=== PATIENT | female | born 1940 | race Caucasian/White ===

== ENCOUNTER 2022-04-19 19:02 | Inpatient (IN) | payer MEDICARE, OTHER, SELFPAY ==
[2022-04-19 19:04] VITALS: BP 156/134; PULSE 82; RESP 18; TEMP 36.5; O2SAT 97; BMI 26.5
--- NOTE | 2022-04-19 19:24 | EDS_ITS ---
HPI HPI - Fall History of Present Illness Chief Complaint: Fall Informant: patient Occured/Mechanism Occurred: Today Mechanism/Context: Yes same level fall Narrative: Patient presents with left hip pain that began after a fall that occurred today. Patient states she was attempting to move a chair when it pulled the rug up and her foot got caught on the edge of the rug. Patient tripped and fell backwards onto her left hip. Patient denies any head injury or loss of consciousness. Patient states her pain is worse with any movement of her left hip. Patient was unable to ambulate or bear weight after the fall. Patient denies any paresthesias or weakness. Patient denies any other injuries. Pain/Injury Pain Location: lower extremity (Left hip) Quality of Pain: Sharp Associated Symptoms Associated Symptoms: Positive for Inability to ambulate; Negative for Parasthesias, Weakness, Loss of function, Loss of consciousness or Amnesia [facility] Medical History (Updated 04/19/22 @ 21:[address] Katja Sumner MD) Hypertension Home Medications Prilosec 20 mg DAILY 04/19/22 [History Last Taken Unknown] lisinopril 10 mg tablet 10 mg PO DAILY 04/19/22 [History Last Taken Unknown] prednisone 10 mg tablet 10 mg PO DAILY 04/19/22 [History Last Taken Unknown] Allergy/AdvReac Type Severity Reaction Status Date / Time No Known Allergies Allergy Verified 04/19/22 20:19 Surgical History (Updated 04/19/22 @ 19:[address] Vega Castro DO) S/P ORIF (open reduction internal fixation) fracture Social History Smoking Status: Never smoker ROS ROS ED Constitutional Constitutional ED: Denies chills or fever(s) Eyes Eyes: Denies blurry vision or change in vision ENT ENT ED: Denies rhinorrhea or sore throat Cardiovascular Cardiovascular: Denies chest pain or palpitations Respiratory/Chest Respiratory/Chest: Denies cough or dyspnea Gastrointestinal Gastrointestinal: Denies nausea or vomiting Genitourinary Genitourinary ED: Denies dysuria or hematuria Musculoskeletal Musculoskeletal: Denies back pain or neck pain Integumentary Reports rash; Denies abscess Neurologic Neurologic: Denies headache(s) or weakness Allergic/Immunologic Allergic/Immunologic ED: Denies mouth swelling or urticaria EXAM Physical Exam Const Vital Signs: 04/19/22 19:04 Temperature 97.7 F L Temperature Source Temporal Pulse Rate 82 Respiratory Rate 18 Blood Pressure 156/134 H Blood Pressure Mean 141 Pulse Ox 97 Oxygen Delivery Method Room Air Positive well nourished and well developed General Appearance ED: well developed and NAD Neck full ROM and supple Extremity Extremity Narrative: There is tenderness over the left hip. The left hip is flexed and internally rotated. Range of motion was limited in all motions of the left hip secondary to pain. Pedal pulses are equal bilaterally. Sensation was intact to light touch in all digits. Capillary refills less than 2 seconds in all digits. Neuro oriented x3, CN's II-XII intact bilaterally, moves all extremities, no focal motor deficits and no sensory deficits noted Sensorium / Orientation: alert Motor Exam: strength 5/5 throughout Psych mental status grossly normal Skin Skin Narrative: There is an erythematous urticarial rash noted over the face. There are no vesicles or pustules. There are no petechia noted. There is no involvement of mucous membranes. MDM MDM MDM Narrative Medical decision making narrative: Patient was given injection of morphine and Zofran here. X-rays of the left hip were obtained. There are 3 views. On my interpretation, there is an intertrochanteric fracture of the left hip. There is minimal displacement. There is some varus angulation. Radiologist also interpreted the x-rays and agrees. Portable 1 view chest x-ray was obtained. On my interpretation, lung davies are clear. There is normal cardiac silhouette. Bony thorax is normal. There is no acute process noted. Radiologist also interpreted the x-ray and agrees. Case was discussed with Dr. Kulwinder Howard from orthopedics. He will see the patient in consultation. He recommended admitting the patient to the hospitalist service. Case was discussed with the hospitalist. She will admit the patient to her service. EKG was obtained. On my interpretation, it showed a normal sinus rhythm with a rate of 61. MN interval, QRS interval, and QTc intervals were all normal. [place]und[place] was normal. There are nonspecific ST-T wave changes. Basic labs were obtained. CBC showed a mild leukocytosis of 14.3. This is most likely due to the prednisone. Spring catheter was placed. Patient was given a repeat dose of morphine. Patient and family understood and were agreeable with the plan. All questions were answered. Lab Data Labs: Laboratory Results - last 24 hr 04/19/22 19:10 WBC 14.3 H RBC 4.31 Hgb 14.1 Hct 42.4 MCV 98.4 MCH 32.7 H MCHC 33.3 RDW Std Deviation 44.0 H RDW Coeff of Russel 12.1 Plt Count 287 MPV 10.2 Immature Gran % (Auto) 1.400 H Neut % (Auto) 88.4 H Lymph % (Auto) 7.3 L Morgan % (Auto) 2.8 Eos % (Auto) 0.0 Baso % (Auto) 0.1 Absolute Neuts (auto) 12.7 H Absolute Lymphs (auto) 1.04 Nucleated RBC % 0 Radiography Diagnostic Testing: Clinical Impression(s) from Imaging Studies Hip/Pelvis X-Ray 04/19/22 20:00 IMPRESSION: Intertrochanteric fracture of the left femoral neck. Electronically Signed: Xavi Solorio MD at 20:32 EDT , Chest X-Ray 04/19/22 20:16 IMPRESSION: No radiographic evidence of acute cardiopulmonary disease. Electronically Signed: Xavi Solorio MD at 20:32 EDT , EKG Initial EKG: Attestation: I personally reviewed and interpreted this EKG as follows: Interpretation: Sinus Rhythm (61) and Non-Specific ST Changes Prior EKG tracings: not available for review Prior: No Prior Discharge Plan Dx/Rx/DC Orders Clinical Impression: Closed left hip fracture, Fall, Hypertension Disposition Disposition: Acute Care [facility]
[2022-04-19] MEDS: Ondansetron 4 MG/2 ML Vial IV (19:38)
[2022-04-19] MEDS: Morphine 4 MG/ML Syringe IV ×3 (19:38→23:15)
--- NOTE | 2022-04-19 20:00 | RAD_ITS ---
EXAM: XR LEFT HIP WITH PELVIS WHEN PERFORMED, 2 OR 3 VIEWS CLINICAL INDICATION: Injury/Pain TECHNIQUE: Two or three views of the left hip with pelvis when performed. This report was created using [employer] report generation technology. COMPARISON: None. FINDINGS: BONES/JOINTS: There is an intertrochanteric fracture of the left femoral neck. No destructive or sclerotic lesions. Note that overlapping bowel shadows may however obscure fine detail. Sacroiliac joint is unremarkable. No widening of the pubic symphysis. The articular structures are unremarkable. SOFT TISSUES: Unremarkable. No soft tissue swelling or gas. RAD/HIP, UNI W/ Pelvis 2-3 Views IMPRESSION: Intertrochanteric fracture of the left femoral neck. Electronically Signed: Xavi Solorio MD at 20:32 EDT ,
--- NOTE | 2022-04-19 20:16 | RAD_ITS ---
EXAM: XR CHEST, 1 VIEW CLINICAL INDICATION: cough TECHNIQUE: Frontal view of the chest. This report was created using [employer] report generation technology. COMPARISON: None. FINDINGS: LUNGS AND PLEURAL SPACES: Unremarkable. No consolidation or edema. No pneumothorax. No effusion. HEART: Unremarkable. Cardiac silhouette not enlarged. MEDIASTINUM: Central airways and mediastinal contour are unremarkable. BONES/JOINTS: Unremarkable. SOFT TISSUES: Unremarkable. RAD/Chest 1 View IMPRESSION: No radiographic evidence of acute cardiopulmonary disease. Electronically Signed: Xavi Solorio MD at 20:32 EDT ,
--- NOTE | 2022-04-19 20:51 | EKG12_ITS ---
Test Reason : DYSRHYTHMIA Blood Pressure : / mmHG Vent. Rate : 061 BPM Atrial Rate : 061 BPM P-R Int : 122 ms QRS Dur : 090 ms QT Int : 428 ms P-R-T Axes : 058 025 035 degrees QTc Int : 430 ms Normal sinus rhythm Nonspecific ST abnormality Abnormal ECG Confirmed by HATTIE NORRIS, MARCELLA ([id number]), greeting card editor ANA CHAO ([id number]) on 04/20/2022 12:47:26 PM Referred By: JONATHAN Confirmed By:MARCELLA KUHN MD
--- NOTE | 2022-04-19 21:00 | HP.PCM.HOS_ITS ---
HPI - General General Date of Admission: 04/19/22 Date of Service: 04/19/22 Chief Complaint: Fall, left hip pain. HPI Narrative The patient is an 81 y/o F w/ PMHx: HTN, GERD who presents to the [facility] ED on 04/19/22 with history of mechanical fall on day of presentation unfortunately tempting to move a chair at which point her foot got caught on the edge of a rug prompting a fall backwards onto the left hip with no loss of consciousness or a ny head trauma with ongoing intractable left hip pain since, worse with any movement with inability to bear weight prompting eventual ED evaluation. Patient denied any associated paresthesias. Patient noted that when she first injured herself the pain was severe, sharp, 10 out of 10 however now following morphine administration if she does not move she reports that her pain is completely controlled. Work-up in the ED included T97.7, heart rate 82, BP 156/134, respiratory rate 18, 97% on room air, plain film of the left hip and pelvis demonstrating intertrochanteric fracture of the left femoral neck, chest x-ray with no acute cardiopulmonary findings. In the ED patient ministered Zofran and morphine therapy. [facility] Medical History (Updated 04/19/22 @ 22:[address] Katja Sumner MD) GERD (gastroesophageal reflux disease) Hypertension Home Medications Prilosec 20 mg DAILY 04/19/22 [History Last Taken Unknown] lisinopril 10 mg tablet 10 mg PO DAILY bp 04/19/22 [History Last Taken Unknown] prednisone 10 mg tablet 40 mg PO DAILY allergic reaction 04/19/22 [History Last Taken Unknown] Allergy/AdvReac Type Severity Reaction Status Date / Time No Known Allergies Allergy Verified 04/19/22 20:19 Family History (Updated 04/19/22 @ 22:[address] Katja Sumner MD) Mother Heart disease Diabetes Father Heart disease Surgical History (Updated 04/19/22 @ 22:[address] Katja Sumner MD) S/P ORIF (open reduction internal fixation) fracture Social History (Updated 04/19/22 @ 22:[address] Katja Sumner MD) household members: none housing: other details: Spouse passed 06/2021. Smoking Status: Never smoker alcohol intake: never substance use type: does not use ROS ROS Narrative Admission Review of Systems: CONSTITUTIONAL: No weight loss, fever, chills, + weakness or fatigue. HEENT: + Recent erythematous urticarial rash on the face. Eyes: No visual loss, blurred vision, double vision or yellow sclerae. Ears, Nose, Throat: No hearing loss, sneezing, congestion, runny nose or sore throat. SKIN: + Recent dermatitis. CARDIOVASCULAR: No chest pain, chest pressure or chest discomfort, palpitations, edema, orthopnea, syncopal events. RESPIRATORY: No shortness of breath, cough or sputum, wheezing, hemoptysis. GASTROINTESTINAL: + Dyspepsia. No anorexia, nausea, vomiting or diarrhea, abdominal pain, melena, BRBPR. GENITOURINARY: No dysuria, frequency, urgency or retention. NEUROLOGICAL: No headache, dizziness, syncope, paralysis, ataxia, numbness or tingling in the extremities, focal weakness, change in bowel or bladder control, seizure. MUSCULOSKELETAL: + muscle, back pain, joint pain or stiffness. HEMATOLOGIC: No anemia, bleeding or bruising. LYMPHATICS: No enlarged nodes. No history of splenectomy. PSYCHIATRIC: No history of depression or anxiety. ENDOCRINOLOGIC: No reports of sweating, cold or heat intolerance. No polyuria or polydipsia. ALLERGIES: No history of asthma, hives, eczema or rhinitis. Vital Signs Vital Signs Vital Signs: 04/19/22 19:04 Temperature 97.7 F L Temperature Source Temporal Pulse Rate 82 Respiratory Rate 18 Blood Pressure 156/134 H Blood Pressure Mean 141 Pulse Ox 97 Oxygen Delivery Method Room Air Weight Weight: 145 lb 4.554 oz Body Mass Index (BMI) 26.5 Physical Exam Narrative Physical Examination: General: Awake, alert, oriented x 3 and cooperative, laying in the ED bed, fatigued, notes pain currently controlled. Skin: Normal color, normal turgor, no icterus, no cyanosis except noted urticarial erythematous rash over the face. HEENT: AT/NC, EOMI, PERRLA, mildly dry MM, no carotid bruits or JVD noted, see skin. Lungs: Mildly diminished, greater bases, appropriate effort, no rales, ronchi or wheezing. Heart: Regular rate and rhythm; no gallop, rub audible. Abdomen: Soft, overweight, NTTP, ND, normal BS, no HSM. Extremities: No cyanosis, clubbing, or edema, status post mechanical fall, peripheral pulses intact, tenderness to left hip palpation, flexed internally rotated, limited range of motion. Neurological: Patient awake, alert, oriented as noted, cognitive function appears baseline intact; pupils equally reactive to light and accommodation, cranial nerves II-XII grossly normal, moving all 4 extremities except extremely limited left lower extremity movement as noted, strength accordingly severely globally decreased. Psychiatric: Affect appears fatigued, no acute evidence of depressive or anxiety feelings. Results Lab / Micro Data Result Diagrams: 04/19/22 19:10 04/19/22 19:10 Radiology Impression Hip/Pelvis X-Ray 04/19/22 20:00 IMPRESSION: Intertrochanteric fracture of the left femoral neck. Electronically Signed: Xavi Solorio MD at 20:32 EDT , Chest X-Ray 04/19/22 20:16 IMPRESSION: No radiographic evidence of acute cardiopulmonary disease. Electronically Signed: Xavi Solorio MD at 20:32 EDT , Assessment & Plan Assessment/Plan (1) Closed left hip fracture: PLAN: Plan The patient is an 81 y/o F w/ PMHx: HTN, GERD who presents to the [facility] ED on 04/19/22 with history of mechanical fall on day of presentation unfortunately tempting to move a chair at which point her foot got caught on the edge of a rug prompting a fall backwards onto the left hip with no loss of consciousness or any head trauma with ongoing intractable left hip pain since, worse with any movement with inability to bear weight prompting eventual ED evaluation. #1. General debility, left hip pain s/p mechanical fall w/ left hip fracture: Plain film noting intertrochanteric fracture of the left femoral neck. Orthopedic surgery consulted from ED. Will admit to MS, maintain NPO after midnight, continue gentle IVFs, UA, UCx, holley placement, monitor I/Os, frequent positioning, fall precautions, PRN pain and anti-emetic regimen. PT/OT following operative intervention. CM consulted for discharge planning. Per NSQIP given age, not markedly elevated ASA, independent status and recent steroids acutely situation only and not for chronic condition, not marked geriatric patient information, patient randy-operative risk acceptable, noted below average to average risk, will obtain EKG and if no acute concerning findings would agree with progression to OR. #2. Hypertension: Continue home regimen including lisinopril with hold parameters as needed, PRN hydralazine. #3. Recent Acute Dermatitis, erythematous urticarial facial rash: Recently rx prednisone taper, will discuss with orthopedic surgery given potential for altered wound healing and continue cautiously given suspected likely allergic reaction but if necessity to stop may consider addition of hydroxyzine for pruritus but will await orthopedic surgery input. #4. GERD: We will continue patient on Prilosec regimen. #5. DVT prophylaxis: SCDs, defer chemoprophylaxis given acute presentation #1. #6. CODE status: Patient LATRELL is her son who is present and living will is currently in place. Discussed CODE status at length including difference between FULL code, DNR-CCA and DNR-CC status. Following discussions about the differences in these status, requested Full Code status. Advanced Care Planning Face to Face Time: 16 minutes. Charges/Coding Visit Charges Inpatient E&M: 79920 Init Hosp L3 Procedures Hospitalists Procedures: 97604 Advncd Care Plan 30 Min
[2022-04-19 21:08] LABS: Absolute Lymphocyte Count 1.04 X10^3/uL (0.83-4.51); Absolute Neutrophil Count 12.7 X10^3/uL (2.0-7.7); Basophil# 0.02 X10^3/uL; Basophil% 0.1 % (0-1); Hematocrit 42.4 % (37-47); Hemoglobin 14.1 g/dL (12.0-15.0); Lymphocyte # 1.04 X10^3/ul (0.83-4.51); Lymphocyte % 7.3 % (19-41); Mean Corp Hgb Conc 33.3 g/dL (32-36); Mean Corpuscular Hgb 32.7 pg (27.0-32.0); Mean Corpuscular Volume 98.4 fL (81-99); Mean Platelet Vol. 10.2 fl (6.2-12.0); Monocyte% 2.8 % (0-10); NRBC Flagged by Analyzer 0 % (0-5); Neutrophil # 12.66 X10^3/uL (2.7-7.7); Neutrophil % 88.4 % (47-70); Platelet Count 287 K/mm3 (150-450); RBC Distribution Width CV 12.1 % (11.6-14.6); Red Blood Count 4.31 M/mm3 (4.2-5.4); White Blood Count 14.3 K/mm3 (4.4-11.0)
[2022-04-19 21:32] VITALS: BP 162/67; PULSE 70; RESP 16; TEMP 35.9; O2SAT 97
[2022-04-19 21:37] LABS: Mucous, Urine 0 SEEN /hpf (<or=2+); Red Blood Cells-Urine 0 SEEN /hpf (0-5); Squamous Epithelial Cells - UA 0 SEEN /hpf (5-10); White Blood Cells 0 SEEN /hpf (0-5)
[2022-04-19 21:39] LABS: Partial Thromboplast Time 26.4 Seconds (24.1-36.2); Prothrombin Time (Protime)PT. 12.7 SECONDS (11.7-14.9)
[2022-04-19 21:46] LABS: Color, Urine Yellow (Yellow); Glucose, Dipstick Normal (Normal); Ketone-Dipstick Negative (Negative); Leukocyte Esterase-Dipstick Negative /ul (Negative); Nitrite-Dipstick Negative (Negative); Occult Blood-Urine 25 /ul (Negative); Protein-Dipstick Negative (Negative); Specific Gravity, Urine 1.015 (1.002-1.030); Urine Bilirubin Dipstick Negative (Negative); Urine Clarity Sl. Cloudy (Clear); Urine Urobilinogen Normal (Normal)
[2022-04-19 21:46] LABS: ALB/GLOB Ratio 1.1 RATIO (0.9-2.4); AST(SGOT) 28 U/L (15-37); Alanine Aminotransfer ALT/SGPT 29 U/L (13-56); Albumin, Serum 3.8 g/dL (3.2-5.0); Alkaline Phosphatase 59 U/L (45-117); Anion Gap 5 (5-15); BUN 17 mg/dL (7-18); BUN/Creat Ratio 18.8 RATIO (10-20); Calcium,Total 9.3 mg/dL (8.5-10.1); Chloride 103 mmol/L (98-107); EST Glomerular Filtration Rate 63 mL/min (>60); Est Glom Filt Rate - Afr Amer 77 mL/min (>60); Estimated Creatinine Clearance 37.46 ml/min; Globulin 3.6 g/dL (2.2-4.2); Glucose 163 mg/dL (74-106); Potassium 3.9 mmol/L (3.5-5.1); Protein, Total 7.4 g/dL (6.4-8.2); Sodium Level 136 mmol/L (136-145)
[2022-04-19 22:00] LABS: Bacteria RARE /hpf (None Seen)
[2022-04-19 22:34] VITALS: BMI 26.6
[2022-04-19] MEDS: 0.9% Normal Saline 1,000 ML 100 ML IV (23:15)
[2022-04-19] MEDS: 0.9% Saline Lock 10 ML Syringe IV (23:21)
[2022-04-19 23:29] VITALS: BP 158/73; PULSE 67; RESP 16; TEMP 36.6; O2SAT 96
[2022-04-20] VITALS (10 sets, daily range): BP systolic 108–155; BP diastolic 52–74; PULSE 65–88; RESP 16–18; TEMP 36.6–37; O2SAT 92–97; BMI 26.9
[2022-04-20] MEDS: Senna/Docusate Sodium 1 Tablet 2 TABLET PO ×2 (00:11→21:27)
[2022-04-20] MEDS: predniSONE 10 MG Tablet PO (00:11)
[2022-04-20] MEDS: diazePAM 2 MG Tablet PO (04:34)
[2022-04-20 07:07] LABS: Absolute Lymphocyte Count 1.18 X10^3/uL (0.83-4.51); Absolute Neutrophil Count 14.7 X10^3/uL (2.0-7.7); Basophil# 0.02 X10^3/uL; Basophil% 0.1 % (0-1); Hematocrit 40.6 % (37-47); Hemoglobin 13.6 g/dL (12.0-15.0); Lymphocyte # 1.18 X10^3/ul (0.83-4.51); Lymphocyte % 6.8 % (19-41); Mean Corp Hgb Conc 33.5 g/dL (32-36); Mean Corpuscular Hgb 32.9 pg (27.0-32.0); Mean Corpuscular Volume 98.1 fL (81-99); Mean Platelet Vol. 9.5 fl (6.2-12.0); Monocyte# 1.41 X10^3/uL; Monocyte% 8.1 % (0-10); NRBC Flagged by Analyzer 0 % (0-5); Neutrophil # 14.65 X10^3/uL (2.7-7.7); Neutrophil % 84.3 % (47-70); Platelet Count 264 K/mm3 (150-450); RBC Distribution Width CV 12.2 % (11.6-14.6); Red Blood Count 4.14 M/mm3 (4.2-5.4); White Blood Count 17.4 K/mm3 (4.4-11.0)
[2022-04-20 07:58] LABS: ALB/GLOB Ratio 1.1 RATIO (0.9-2.4); AST(SGOT) 29 U/L (15-37); Alanine Aminotransfer ALT/SGPT 28 U/L (13-56); Albumin, Serum 3.4 g/dL (3.2-5.0); Alkaline Phosphatase 53 U/L (45-117); Anion Gap 7 (5-15); BUN 18 mg/dL (7-18); BUN/Creat Ratio 23.5 RATIO (10-20); Calcium,Total 8.6 mg/dL (8.5-10.1); Chloride 103 mmol/L (98-107); Creatinine, Serum 0.77 mg/dL (0.55-1.02); EST Glomerular Filtration Rate 77 mL/min (>60); Est Glom Filt Rate - Afr Amer 93 mL/min (>60); Estimated Creatinine Clearance 33.71 ml/min; Globulin 3.2 g/dL (2.2-4.2); Glucose 128 mg/dL (74-106); Potassium 4.3 mmol/L (3.5-5.1); Protein, Total 6.6 g/dL (6.4-8.2); Sodium Level 137 mmol/L (136-145)
[2022-04-20] MEDS: 0.9% Normal Saline 1,000 ML 100 ML IV ×3 (09:10→21:36)
--- NOTE | 2022-04-20 10:20 | CASEMGMT ---
Social Work Pt was informed by admitting nurse that advance directives are not on file at [facility]. Pt states she does have a living will and health care POA naming her son Darell De La Torre. Pt is aware documents are not on file and is agreeable to bring a copy in when able. BISI Reid
--- NOTE | 2022-04-20 11:35 | CASEMGMT ---
CATHI CARVALHO Assessment: Face to Face with pt for initial transition planning/care coordination assessment. CATHI CARVALHO introduced self and role at [facility], pt voices understanding and consents to assessment. Pt is A/O x4 and answers all questions appropriately at this time. Pt sitting up in bed in no distress. Pt crossword puzzle maker just left. PA, Gonzalez in to see patient as well during assessment. Care providers, pharmacy, and demographics verified/updated. Admitting Dx: Fall, L hip fx PCP: [facility]imal Specialists: val [facility] Pres[facility] Benefit: yes LW/HPOA: Pt states she has a LW/DPOA and her DPOA is her son Darell De La Torre. She is aware this is not on file at [facility] and she may bring in to be scanned into her chart. LNOK: Darell De La Torre, son Living Arrangements: Pt lives alone in a single story house with 3 steps to enter with a rail. Pt reports she was I in ADL's prior to hospitalization. Pt in June. Pt denies concerns at home. Transportation: Pt drives self and denies concerns with transportation. DME/HHC/SNF: Pt has grab bars in her bathroom. She states she has a cane at home but does not use. Pt denies hx of HHC or SNF stays. Pt states she feels she would like to go to [facility] post surgery for therapy prior to returning home. She states that some of her friends have been there. Made her aware that post surgery and therapy RN DEVEN or MARQUIS will speak with patient. Pt states no further concerns/needs. CM to follow. Advised pt to ask CM if any further question/concerns/needs arise, voices understanding. Pt Goal: [facility] Plan: TBD
--- NOTE | 2022-04-20 11:41 | CON.PCM.OR_ITS ---
HPI Consult Data Date of Consult: 04/20/22 HPI Narrative Reason for Consultation: Left hip fracture HPI Narrative: ELEONORA MOBLEY, is a 81 F who presents to [facility] via squad on 04/19/2022. She was evaluated through the emergency department and admitted to the hospital for a left intertrochanteric hip fracture. Patient reports while she was at home she was attempting to move a chair when she tripped causing her to fall backwards landing onto her left hip patient states that she had immediate pain and was unable to weight-bear after the fall. She denies any other associated injury with this fall. Denies striking her head, any loss of consciousness, neck or back pain. Patient reports no history of any injury to this left hip in the past. She denies any headaches blurred vision, chest pain, shortness of breath, calf pain, nausea vomiting. Reports her pain is well- managed if she does not move. The pain can be as severe as in 9 with a constant pain of a 4. Patient has no history of recent illnesses or infection. No history of bleeding or clotting disorders. Patient has not received her COVID vaccine but has had COVID. [facility] Medical History GERD (gastroesophageal reflux disease) Hiatal hernia High cholesterol Hypertension Non-smoker Osteoporosis Post-menopausal Home Medications Prilosec 20 mg DAILY hiatal hernia 04/19/22 [History Last Taken 04/19/22 09:00] aspirin 81 mg tablet 81 mg PO DAILY blood thinner 04/19/22 [History Last Taken 04/19/22 09:00] lisinopril 10 mg tablet 10 mg PO DAILY bp 04/19/22 [History Last Taken 04/19/22 09:00] prednisone 10 mg tablet 40 mg PO DAILY allergic reaction 04/19/22 [History Last Taken 04/19/22 09:00] ascorbic acid (vitamin C) 500 mg tablet (Vitamin C) 500 mg PO DAILY Check with primary doctor 04/20/22 [History Last Taken Unknown] calcium 600 mg capsule 600 mg PO DAILY Check with primary doctor 04/20/22 [History Last Taken Unknown] cholecalciferol (vitamin D3) 50 mcg (2,000 unit) tablet (Vitamin D3) 50 mcg PO QWEEK Check with primary doctor 04/20/22 [History Last Taken Unknown] cyanocobalamin (vitamin B-12) 1,000 mcg tablet (Vitamin B-12) 1,000 mcg PO DAILY Check with primary doctor 04/20/22 [History Last Taken Unknown] fluticasone propionate 50 mcg/actuation nasal spray,suspension (Flonase Allergy Relief) 1 spray intranasal DAILY PRN allergies 04/20/22 [History Last Taken Unknown] folic acid 400 mcg tablet 400 mcg PO DAILY Check with primary doctor 04/20/22 [History Last Taken Unknown] lactobacillus combination no.4 3 billion cell capsule (Probiotic) 3 cell PO DAILY Check with primary doctor 04/20/22 [History Last Taken Unknown] magnesium 250 mg tablet 250 mg PO DAILY Check with primary doctor 04/20/22 [History Last Taken Unknown] omega-3 fatty acids 1,000 mg PO DAILY Check with primary doctor 04/20/22 [History Last Taken Unknown] Allergy/AdvReac Type Severity Reaction Status Date / Time No Known Allergies Allergy Verified 04/19/22 20:19 Family History Mother Heart disease Diabetes Father Heart disease Surgical History S/P ORIF (open reduction internal fixation) fracture Social History household members: none housing: other details: Spouse passed 06/2021. Smoking Status: Never smoker alcohol intake: never substance use type: does not use ROS Constitutional Constitutional: Reports systems reviewed and no addt'l complaints, except as documented Eyes Eyes: Reports systems reviewed and no addt'l complaints, except as documented ENT HEENT: Reports systems reviewed and no addt'l complaints, except as documented Cardiovascular Cardiovascular: Reports systems reviewed and no addt'l complaints, except as documented Respiratory/Chest Respiratory/Chest: Reports systems reviewed and no addt'l complaints, except as documented Gastrointestinal Gastrointestinal: Reports systems reviewed and no addt'l complaints, except as documented Musculoskeletal Musculoskeletal: Reports systems reviewed and no addt'l complaints, except as documented Integumentary Integumentary: Reports systems reviewed and no addt'l complaints, except as documented Neurologic Neurologic: Reports systems reviewed and no addt'l complaints, except as documented Endocrine Endocrinology: Reports systems reviewed and no addt'l complaints, except as documented Hematologic/Lymphatic Hematologic/Lymphatic: Reports systems reviewed and no addt'l complaints, except as documented Allergic/Immunologic Allergic/Immunologic: Reports systems reviewed and no addt'l complaints, except as documented Vital Signs Vital Signs Vital Signs: 04/19/22 19:04 04/19/22 21:32 04/19/22 23:29 Temperature 97.7 F L 96.6 F L 98 F Temperature Source Temporal Temporal Temporal Pulse Rate 82 70 67 Respiratory Rate 18 16 16 Respiratory Effort Respiratory Depth Respiratory Pattern Blood Pressure 156/134 H 162/67 H 158/73 H Blood Pressure Mean 141 98 101 Blood Pressure Source Monitor Blood Pressure Position Semi-Fowlers Blood Pressure Location Right Arm Pulse Ox 97 97 96 Oxygen Delivery Method Room Air Room Air Room Air 04/19/22 23:30 04/20/22 04:40 04/20/22 08:33 Temperature 97.8 F 98.2 F Temperature Source Temporal Oral Pulse Rate 80 88 Respiratory Rate 16 16 Respiratory Effort Normal Non-Labored Respiratory Depth Normal Respiratory Pattern Normal Blood Pressure 150/70 H 150/64 H Blood Pressure Mean 96 92 Blood Pressure Source Monitor Monitor Blood Pressure Position Semi-Fowlers Semi-Fowlers Blood Pressure Location Left Arm Left Arm Pulse Ox 97 94 Oxygen Delivery Method Room Air Room Air Room Air 04/20/22 07:30 Temperature Temperature Source Pulse Rate Respiratory Rate Respiratory Effort Respiratory Depth Respiratory Pattern Blood Pressure Blood Pressure Mean Blood Pressure Source Blood Pressure Position Blood Pressure Location Pulse Ox Oxygen Delivery Method Room Air Weight Weight: 66.3 kg Body Mass Index (BMI) 26.6 Physical Exam Narrative Upon entering the room I found patient sitting up in bed. Patient was alert oriented speaking with the nurse who was in the room with her. Patient was in no respiratory distress, speaking in full sentences. Cranial nerves II through XII gross intact. There was no signs of trauma to head face neck. Patient had excellent range of motion of the upper extremities with good muscle tone and strength. Patient is right-hand dominant. Equal nursing scheduler strength. No signs of trauma to the anterior chest wall or abdomen. Patient could not tolerate sitting forward due to the severe left hip pain. There was good range of motion of the right hip knee and ankle without pain. I did not attempt any active range of motion of the left knee. She does have good plantar flexion dorsiflexion of left foot. There was no calf tenderness. There is no atrophic skin changes varicosities or edema of the lower extremities. Patient is neurovascular otherwise intact. Imaging studies reviewed shows patient does have a intertrochanteric fracture of the left hip. Const alert and oriented x3 HEENT normocephalic Eyes PERRL Neck supple Resp normal respiratory effort Effort and Inspection: able to speak in complete sentences Extremity normal capillary refill Neuro CN's II-XII intact bilaterally Motor Exam: strength 5/5 throughout Psych mental status grossly normal and affect normal Lab / Micro Data Result Diagrams: 04/20/22 06:05 04/20/22 06:05 Labs: Laboratory Results - last 24 hr 04/19/22 19:10: WBC 14.3 H, RBC 4.31, Hgb 14.1, Hct 42.4, MCV 98.4, MCH 32.7 H, MCHC 33.3, RDW Std Deviation 44.0 H, RDW Coeff of Russel 12.1, Plt Count 287, MPV 10.2, Immature Gran % (Auto) 1.400 H, Neut % (Auto) 88.4 H, Lymph % (Auto) 7.3 L , [place] % (Auto) 2.8, Eos % (Auto) 0.0, Baso % (Auto) 0.1, Absolute Neuts (auto) 12.7 H, Absolute Lymphs (auto) 1.04, Nucleated RBC % 0 04/19/22 19:10: PT 12.7, INR 1.0, APTT 26.4 04/19/22 19:10: Sodium 136, Potassium 3.9, Chloride 103, Carbon Dioxide 28.0, Anion Gap 5, BUN 17, Creatinine 0.90, Estim Creat Clear Calc 37.46, Est GFR (MDRD) Af Amer 77, Est GFR (MDRD) Non-Af 63, BUN/Creatinine Ratio 18.8, Glucose 163 H, Calcium 9.3, Total Bilirubin 0.70, AST 28, ALT 29, Alkaline Phosphatase 59, Total Protein 7.4, Albumin 3.8, Globulin 3.6, Albumin/Globulin Ratio 1.1 04/19/22 19:10: Blood Type A POSITIVE, Antibody Screen NEGATIVE 04/19/22 21:20: Urine Color Yellow, Urine Clarity Sl. Cloudy, Urine pH 6.0, Ur Specific [place] 1.015, Urine Protein Negative, Urine Glucose (UA) Normal, Urine Ketones Negative, Urine Occult Blood 25 H, Urine Nitrite Negative, Urine Bilirubin Negative, Urine Urobilinogen Normal, Ur Leukocyte Esterase Negative, Urine RBC 0 SEEN, Urine WBC 0 SEEN, Ur Squamous Epith Cells 0 SEEN, Urine Bacteria RARE, Urine Mucus 0 SEEN 04/20/22 06:05: WBC 17.4 H, RBC 4.14 L, Hgb 13.6, Hct 40.6, MCV 98.1, MCH 32.9 H , MCHC 33.5, RDW Std Deviation 44.0 H, RDW Coeff of Russel 12.2, Plt Count 264, MPV 9.5, Immature Gran % (Auto) 0.700, Neut % (Auto) 84.3 H, Lymph % (Auto) 6.8 L, [place] % (Auto) 8.1, Eos % (Auto) 0.0, Baso % (Auto) 0.1, Absolute Neuts (auto) 14.7 H, Absolute Lymphs (auto) 1.18, Nucleated RBC % 0 04/20/22 06:05: Sodium 137, Potassium 4.3, Chloride 103, Carbon Dioxide 27.0, Anion Gap 7, BUN 18, Creatinine 0.77, Estim Creat Clear Calc 33.71, Est GFR (MDRD) Af Amer 93, Est GFR (MDRD) Non-Af 77, BUN/Creatinine Ratio 23.5 H, Glucose 128 H, Calcium 8.6, Total Bilirubin 0.90, AST 29, ALT 28, Alkaline Phosphatase 53, Total Protein 6.6, Albumin 3.4, Globulin 3.2, Albumin/Globulin Ratio 1.1 Radiology Impression Hip/Pelvis X-Ray 04/19/22 20:00 IMPRESSION: Intertrochanteric fracture of the left femoral neck. Electronically Signed: Xavi Solorio MD at 20:32 EDT , Chest X-Ray 04/19/22 20:16 IMPRESSION: No radiographic evidence of acute cardiopulmonary disease. Electronically Signed: Xavi Solorio MD at 20:32 EDT , Assessment & Plan Assessment/Plan (1) Closed left hip fracture: PLAN: Plan 1. Continue all pain medications as prescribed 2. Patient to remain n.p.o. 3. Ice to left hip 4. Continue SCDs bilaterally 5. Dr. Howard will be performing an ORIF of a left hip fracture today
--- NOTE | 2022-04-20 15:41 | PCM.PN.HOSP ---
Subjective Subjective Follow-up for fall, left hip pain complicated with fracture Objective Data Objective Data Vital Signs: Vital Signs Temp Pulse Resp BP Pulse Ox O2 Del Method 98.2 F 88 16 155/72 H 94 Room Air 04/20/22 15:04/20/22 15:04/20/22 15:04/20/22 15:04/20/22 15:04/20/22 15:26 Oxygen Delivery Method Room Air Weight: 146 lb 2.664 oz Body Mass Index (BMI) 26.9 Intake & Output: Intake and Output for Last 24 Hours 04/18/22 04/19/22 04/20/22 23:59 23:59 23:59 Intake Total 991.67 / 991.67 Output Total 650 / 650 Balance 341.67 / 341.67 Lab / Micro Data Result Diagrams: 04/20/22 06:05 04/20/22 06:05 Labs: Laboratory Results - last 24 hr 04/19/22 19:10: WBC 14.3 H, RBC 4.31, Hgb 14.1, Hct 42.4, MCV 98.4, MCH 32.7 H, MCHC 33.3, RDW Std Deviation 44.0 H, RDW Coeff of Russel 12.1, Plt Count 287, MPV 10.2, Immature Gran % (Auto) 1.400 H, Neut % (Auto) 88.4 H, Lymph % (Auto) 7.3 L, [place] % (Auto) 2.8, Eos % (Auto) 0.0, Baso % (Auto) 0.1, Absolute Neuts (auto) 12.7 H, Absolute Lymphs (auto) 1.04, Nucleated RBC % 0 04/19/22 19:10: PT 12.7, INR 1.0, APTT 26.4 04/19/22 19:10: Sodium 136, Potassium 3.9, Chloride 103, Carbon Dioxide 28.0, Anion Gap 5, BUN 17, Creatinine 0.90, Estim Creat Clear Calc 37.46, Est GFR (MDRD) Af Amer 77, Est GFR (MDRD) Non-Af 63, BUN/Creatinine Ratio 18.8, Glucose 163 H, Calcium 9.3, Total Bilirubin 0.70, AST 28, ALT 29, Alkaline Phosphatase 59, Total Protein 7.4, Albumin 3.8, Globulin 3.6, Albumin/Globulin Ratio 1.1 04/19/22 19:10: Blood Type A POSITIVE, Antibody Screen NEGATIVE 04/19/22 21:20: Urine Color Yellow, Urine Clarity Sl. Cloudy, Urine pH 6.0, Ur Specific [place] 1.015, Urine Protein Negative, Urine Glucose (UA) Normal, Urine Ketones Negative, Urine Occult Blood 25 H, Urine Nitrite Negative, Urine Bilirubin Negative, Urine Urobilinogen Normal, Ur Leukocyte Esterase Negative, Urine RBC 0 SEEN, Urine WBC 0 SEEN, Ur Squamous Epith Cells 0 SEEN, Urine Bacteria RARE, Urine Mucus 0 SEEN 04/20/22 06:05: WBC 17.4 H, RBC 4.14 L, Hgb 13.6, Hct 40.6, MCV 98.1, MCH 32.9 H, MCHC 33.5, RDW Std Deviation 44.0 H, RDW Coeff of Russel 12.2, Plt Count 264, MPV 9.5, Immature Gran % (Auto) 0.700, Neut % (Auto) 84.3 H, Lymph % (Auto) 6.8 L, [place] % (Auto) 8.1, Eos % (Auto) 0.0, Baso % (Auto) 0.1, Absolute Neuts (auto) 14.7 H, Absolute Lymphs (auto) 1.18, Nucleated RBC % 0 04/20/22 06:05: Sodium 137, Potassium 4.3, Chloride 103, Carbon Dioxide 27.0, Anion Gap 7, BUN 18, Creatinine 0.77, Estim Creat Clear Calc 33.71, Est GFR (MDRD) Af Amer 93, Est GFR (MDRD) Non-Af 77, BUN/Creatinine Ratio 23.5 H, Glucose 128 H, Calcium 8.6, Total Bilirubin 0.90, AST 29, ALT 28, Alkaline Phosphatase 53, Total Protein 6.6, Albumin 3.4, Globulin 3.2, Albumin/Globulin Ratio 1.1 Radiography Diagnostic Testing: Radiology Impression Hip/Pelvis X-Ray 04/19/22 20:00 IMPRESSION: Intertrochanteric fracture of the left femoral neck. Electronically Signed: Xavi Solorio MD at 20:32 EDT , Chest X-Ray 04/19/22 20:16 IMPRESSION: No radiographic evidence of acute cardiopulmonary disease. Electronically Signed: Xavi Solorio MD at 20:32 EDT , Assessment & Plan Assessment/Plan (1) Closed left hip fracture: PLAN: Plan 81-year-old female with multiple comorbidities admitted with mechanical fall resulting to severe left hip pain complicated with left hip fracture #1. Intertrochanteric fracture of the left hip most likely due to osteoporosis/pathological: Plain film noting intertrochanteric fracture of the left femoral neck.? Patient has good preop exercise capacity, more than 4 METS. Needs to climb stairs and walk and do lawn work. Orthopedic surgery consulted. PT OT, pain management. Plan for surgery today about 1600 #2.? Hypertension: Continue home regimen including lisinopril with hold parameters as needed, PRN hydralazine. #3.? Recent Acute Dermatitis, erythematous urticarial facial rash: Patient has rough and dry skin over face, neck area. Discontinue prednisone. Does not need taper as well as recently started. Thick petroleum jelly over the rash area and Calmoseptine #4.? GERD: continue patient on Prilosec regimen. #5.? DVT prophylaxis: SCDs, #6.? CODE status: Patient LATRELL is her son who is present and living will is currently in place. Discussed CODE status at length including difference between FULL code, DNR-CCA and DNR-CC status. Following discussions about the differences in these status, requested Full Code status. Clinical Impression(s) from Imaging Studies Hip/Pelvis X-Ray 04/19/22 20:00 IMPRESSION: Intertrochanteric fracture of the left femoral neck. Electronically Signed: Xavi Solorio MD at 20:32 EDT , Chest X-Ray 04/19/22 20:16 IMPRESSION: No radiographic evidence of acute cardiopulmonary disease. Electronically Signed: Xavi Solorio MD at 20:32 EDT , Charges/Coding Visit Charges Inpatient E&M: 74490 Subs Hosp L2
[2022-04-20] MEDS: Pantoprazole Sodium 20 MG Tablet PO (16:54)
[2022-04-20] MEDS: Lisinopril 10 MG Tablet PO (16:55)
[2022-04-20] MEDS: Cefazolin 2 GM in 0.9% Normal Saline 100 ML IV (18:42)
--- NOTE | 2022-04-20 18:45 | RAD_ITS ---
EXAM: XR LEFT HIP WITH PELVIS WHEN PERFORMED, 1 VIEW CLINICAL INDICATION: ORIF, SHORT GAMMA NAIL TECHNIQUE: Frontal view of the left hip with pelvis when performed. This report was created using [employer] report generation technology. COMPARISON: None. FINDINGS: See Impression. RAD/Hip 1 view with Pelvis IMPRESSION: Multiple intraoperative images submitted of the left proximal femur. See surgical report for full details. Electronically Signed: Mic Allison MD at 21:37 EDT ,
--- NOTE | 2022-04-20 19:30 | PCM.OP.BLANK ---
Problems Associated Problem List Diagnoses (1) Closed left hip fracture: Operative Report Date of Procedure: 04/20/22 Preoperative diagnosis: Left hip displaced intertrochanteric fracture Postoperative diagnosis: Same Title of operation: Left hip open reduction internal fixation, intramedullary nail fixation, locked Surgeon: Dr. Kulwinder Howard Studio Data Analyst: Britni Thomason PA-C Anesthesia: General Medications: Ancef 2gm Indications for surgery: Patient is an 81-year-old female sustained a hip fracture yesterday. Patient and their family explained diagnosis and treatment options. Patient evaluated by the medical services. Patient did wish to have surgery. Appropriate informed consent obtained and signed. Findings: Patient had a displaced unstable intertrochanteric hip fracture. They underwent standard reduction, internal fixation using a [place] short gamma nail. X-rays taken throughout. assistant professor in family studies, physician bricklayer's assistant, was utilized throughout the entire procedure. They were vital to the procedure from beginning to end. They help with patient transfer, patient padding and positioning, fracture reduction, maintenance of fracture reduction, internal fixation of implants, wound closure, bandage application, patient transfer. Without surgical technology instructor, surgical time would have been significantly increased and surgical outcome could have been less optimal. Procedure: Patient was taken to the operating room. Placed under a general anesthetic and transferred to the operating table with the help of the bricklayer's assistant. With the help of the bricklayer's assistant patient was prepped and padded for surgery. Operative side foot was well-padded and placed in the traction boot. Uninjured lower extremity was abducted and flexed out of harms way. YOEL hose and SCDs utilized. Fluoroscopy was brought in. With the help of the bricklayer's assistant and manipulation of the limb, reduction was nicely obtained as verified under AP lateral and oblique fluoroscopic images. . Operative hip/thigh was prepped padded draped in usual orthopedic sterile fashion for the procedure. Longitudinal incision was made just proximal to the greater trochanter. Taken through skin and subcutaneous tissue. Sharp awl was placed on the tip of the greater trochanter. Position verified under AP and lateral fluoroscopic images. This was then taken down inside the bone. Slightly bent ball-tipped guide salma was then placed from the tip of the greater trochanter into the intra-medullary canal of the femur. Its position verified radiographically. Reamer was then done over the tip of this with the help of the bricklayer's assistant holding the soft tissue protector appropriately. Once reaming was done we placed the short 125? angle device over the guidepin. This was easily introduced. Guide salma removed. Outrigger device was utilized to position a guidepin from the lateral cortex of the femur across the fracture site and into the femoral head in a good position centrally, as noted on AP lateral and oblique fluoroscopic images. This was measured. Appropriate reaming done. 90 mm length lag screw was placed from the lateral cortex of the femur into the femoral head. A small amount of the screw was noted to be protruding laterally as planned. No cartilage penetration of the femoral head noted on any x-ray. Fracture was then compressed with the outrigger device. Proximal cap screw was placed by the bricklayer's assistant seated down completely, confirmed, and then loosened one fourth turn. We then used the outrigger device to place distal cross locking screw under standard technique. This was confirmed to be of adequate length in good position on AP and lateral images. Outrigger device removed. Final set of AP and lateral proximal x-rays taken and saved. Incisions thoroughly irrigated. Closing by the bricklayer's assistant with deep 0 Vicryl, mid layer 0 Vicryl, inverted 2-0 Vicryl, skin gail. Puncture wounds closed with inverted 2-0 Vicryl and gail. Xeroform 4 x 4's ABD tape applied. Patient was awoken from their anesthetic, transferred back to their own bed with the help of the bricklayer's assistant and into recovery room in satisfactory condition. Patient will continue to be admitted to the hospital under the hospitalist service. This note was generated with [employer] dictation software. It may contain incorrect words, spelling, and punctuation that were not noted in checking the note before signing.
[2022-04-20] MEDS: oxyCODONE 5 MG Tablet PO (21:27)
[2022-04-20] MEDS: Acetaminophen 325 MG Tablet 650 MG PO (21:27)
[2022-04-20] MEDS: Cefazolin 1 GM/50 ML BAG IV (21:35)
[2022-04-21 01:18] VITALS: BP 103/55; PULSE 83; RESP 16; TEMP 36.8; O2SAT 95
[2022-04-21] MEDS: oxyCODONE 5 MG Tablet PO ×3 (02:03→14:47)
[2022-04-21] MEDS: Acetaminophen 325 MG Tablet 650 MG PO (02:03)
[2022-04-21 05:13] VITALS: BP 108/70; PULSE 89; RESP 16; TEMP 37.2; O2SAT 95
[2022-04-21] MEDS: Cefazolin 1 GM/50 ML BAG IV (05:15)
[2022-04-21] MEDS: diazePAM 2 MG Tablet PO (06:06)
--- NOTE | 2022-04-21 08:26 | WOUNDNOTE ---
wound photo: right buttock
[2022-04-21] MEDS: Pantoprazole Sodium 20 MG Tablet PO (08:49)
[2022-04-21] MEDS: Lisinopril 10 MG Tablet PO (08:49)
[2022-04-21] MEDS: Aspirin 81 MG TAB.CHEW PO (08:49)
[2022-04-21] MEDS: 0.9% Normal Saline 1,000 ML 100 ML IV (09:29)
[2022-04-21 09:40] VITALS: O2SAT 98
[2022-04-21 09:42] VITALS: BP 110/76; PULSE 82; RESP 14; TEMP 36.7; O2SAT 96
--- NOTE | 2022-04-21 09:51 | CASEMGMT ---
Per Winsome from TCU/Rehab admissions patient can be accepted in Rehab. No covid test needed. Plan: Rehab [facility]
--- NOTE | 2022-04-21 12:05 | TREXTCAR_ITS ---
Diet Diet Order/Speech Therapy: 04/21/22 05:45 Diet: Regular - General Is pt able to select menu?: Yes Routine Orders/Code Status Suppository Type: Dulcolax 10mg Suppository Frequency: Daily PRN Code Status: Full Code Wound(s) RT ankle: Wound Type: Abrasion LEFT HIP: Wound Type: Surgical Incision Rt buttocks: Wound Type: Skin Tear Dressing Change: Mepilex Therapies Weight Bearing: Weight bearing as tolerated Extremity Affected:: Left Lower Physical Therapy: Eval and Treat Occupational Therapy: Eval and Treat Speech Therapy: Eval and Treat Problem/Diagnosis (1) Closed left hip fracture: Status: Acute Code(s): S72.002A - Fracture of unspecified part of neck of left femur, initial encounter for closed fracture Allergies/Procedures Done in Hospital Allergies No Known Allergies Allergy (Verified 04/19/22 20:19) Type of Care/Length of Stay Estimated LOS: Convalescent Care Less Than 30 days Type of Care Needed: Skilled Rehab Potential: Good Prognosis: Good Additional Orders/Day of Discharge Day of Discharge: 04/21/22 Discharge Plan Admission Admit Date/Time: 04/19/22 21:02 Primary Reason for Your Visit: Closed left hip fracture Attending Provider: Tyler Thomas Primary Care Provider: Gregg Celis Consulting Providers: Katja Sumner ; Kulwinder Howard Discharge Orders/Prescriptions Prescriptions: New oxycodone 5 mg Tablet 2.5 mg PO Q4H PRN PRN (Reason: Pain Score 4-10) 3 Days Qty: 7 0RF sennosides-docusate sodium [Stool Softener-Stimulant Laxat] 8.6-50 mg Tablet 2 tab PO BID Qty: 0 0RF Continued lisinopril 10 mg tablet 10 mg PO DAILY Label Comments: TAKE 1 TABLET BY MOUTH ONCE DAILY Prilosec 20 mg DAILY aspirin 81 mg Tablet 81 mg PO DAILY calcium 600 mg Capsule 600 mg PO DAILY cyanocobalamin (vitamin B-12) [Vitamin B-12] 1,000 mcg Tablet 1,000 mcg PO DAILY folic acid 400 mcg Tablet 400 mcg PO DAILY ascorbic acid (vitamin C) [Vitamin C] 500 mg Tablet 500 mg PO DAILY magnesium 250 mg Tablet 250 mg PO DAILY fluticasone propionate [Flonase Allergy Relief] 50 mcg/actuation [place],Suspension 1 spray INTRANASAL DAILY PRN (Reason: allergies) omega-3 fatty acids Capsule 1,000 mg PO DAILY cholecalciferol (vitamin D3) [Vitamin D3] 50 mcg (2,000 unit) Tablet 50 mcg PO QWEEK Probiotic 3 billion cell Capsule 3 cell PO DAILY Discontinued prednisone 10 mg tablet 40 mg PO DAILY Label Comments: TAKE 4 TABLETS BY MOUTH ONCE DAILY FOR 3 DAYS WITH FOOD, THEN 2 TABLETS ONCE DAILY FOR 3 DAYS, THEN 1 TABLET ONCE DAILY FOR 1 DAY Referrals / Follow Up: Gregg Celis MD [Primary Care Provider] - Within 2 Weeks Kulwinder Howard MD [Med Staff - Active Staff] - Within 2 Weeks Disposition Disposition (needs filled in before D/C Order can be placed): Shelter Facility
[2022-04-21 12:11] VITALS: BP 110/72; PULSE 80; RESP 16; TEMP 36.9; O2SAT 98
--- NOTE | 2022-04-21 12:13 | DS.PCM_ITS ---
Providers Date of Admission: 04/19/22 Date of Discharge: 04/21/22 Primary Care Physician: Gregg Celis MD Consultations 04/19/22 22:36 Consult: Orthopedics Routine Consulting Provider: Kulwinder oHward Reason for Consult: L hip fracture EMERGENT Consult: No MD Notified: Yes Date Notified: 04/19/22 Time Notified: 21:05 Method of Notification: ED Physician Initiated 04/21/22 06:41 Consult: Onc/Wound/sorter/assay tech Routine Comment: Reason for Consult:: skin tear to Rt buttocks Reason For Visit: FALL, L HIP FRACTURE Diagnosis Discharge Diagnosis (1) Closed left hip fracture: Status: Acute Code(s): S72.002A - Fracture of unspecified part of neck of left femur, initial encounter for closed fracture Medications at Discharge Home Medications Prilosec 20 mg DAILY hiatal hernia 04/19/22 aspirin 81 mg tablet 81 mg PO DAILY blood thinner 04/19/22 lisinopril 10 mg tablet 10 mg PO DAILY bp 04/19/22 ascorbic acid (vitamin C) 500 mg tablet (Vitamin C) 500 mg PO DAILY Check with primary doctor 04/20/22 calcium 600 mg capsule 600 mg PO DAILY Check with primary doctor 04/20/22 cholecalciferol (vitamin D3) 50 mcg (2,000 unit) tablet (Vitamin D3) 50 mcg PO QWEEK Check with primary doctor 04/20/22 cyanocobalamin (vitamin B-12) 1,000 mcg tablet (Vitamin B-12) 1,000 mcg PO DAILY Check with primary doctor 04/20/22 fluticasone propionate 50 mcg/actuation nasal spray,suspension (Flonase Allergy Relief) 1 spray intranasal DAILY PRN allergies 04/20/22 folic acid 400 mcg tablet 400 mcg PO DAILY Check with primary doctor 04/20/22 lactobacillus combination no.4 3 billion cell capsule (Probiotic) 3 cell PO DAILY Check with primary doctor 04/20/22 magnesium 250 mg tablet 250 mg PO DAILY Check with primary doctor 04/20/22 omega-3 fatty acids 1,000 mg PO DAILY Check with primary doctor 04/20/22 oxycodone 5 mg tablet 2.5 mg PO Q4H PRN PRN Pain Score 4-10 3 days #7 tabs 04/21/22 sennosides 8.6 mg-docusate sodium 50 mg tablet (Stool Softener-Stimulant Laxative) 2 tab PO BID #0 tabs 04/21/22 Hospital Course Summary of Care Provided Hospital Course: 81-year-old female with multiple comorbidities admitted with mechanical fall resulting to severe left hip pain complicated with left hip fracture #1.? Intertrochanteric fracture of the left hip most likely due to osteoporosis/pathological: Plain film noting intertrochanteric fracture of the left femoral neck.? Patient has good preop exercise capacity, more than 4 METS.? Needs to climb stairs and walk and do lawn work.? Orthopedic surgery consulted.? PT OT, pain management. The patient had left hip ORIF with intramedullary nail fixation, locked on 04/20/2022. Postop, her hemoglobin was on baseline. No severe anemia, hematoma or bruise at operative site. Patient had PT and OT and being transferred to TCU for further rehab. #2.? Hypertension: Continue home regimen including lisinopril with hold parameters as needed. #3.? Recent Acute Dermatitis, erythematous urticarial facial rash: Patient has rough and dry skin over face, neck area.? Discontinue prednisone.? Does not need taper as well as recently started.? Thick petroleum jelly over the rash area and Calmoseptine #4.? GERD:? continue patient on Prilosec regimen. #5.? DVT prophylaxis: SCDs, #6.? CODE status: Patient LATRELL is her son who is present and living will is currently in place. Discussed CODE status at length including difference between FULL code, DNR-CCA and DNR-CC status. Following discussions about the differences in these status, requested Full Code status. Discharge medication reconciliation done. Discharge follow-up instructions completed. Discharge process discussed with the patient and all questions were answered to patient's satisfaction. Total time spent, exact 35 minutes on discharge meds reconciliation, examination, coordination of care with nurses and ancillary staff, review of imaging and blood test and discussion with the patient on follow-up instructions. Physical Exam Narrative Seen and examined. Patient does not have pain over left hip until she moves or stand up. Got physical therapy in the morning. General: Alert, Oriented x3, Cooperative HEENT: Atraumatic, PERRLA, EOMI, Normocephalic Oral: No Gingival or Mucosal Lesions/ Ulcerations Neck: Supple, No JVD, Negative Carotid Bruits Lungs: Air entry diminished in bilateral lung bases. No crepitation/rhonchi Cardiovascular: Regular rate, Regular Rhythm, Normal S1, Normal S2, No murmurs Abdomen: Bowel Sounds Present, Soft, Non Tender, Non-Distended : No renal angle tenderness. No suprapubic tenderness. Extremities: No edema, Capillary Refill Less than 3 Seconds Skin: No rashes, No breakdown Musculoskeletal: Surgical dressing dry over left hip. Small dot of the stain on dressing. No palpable external hematoma or bruise. No Tenderness to Palpation of Joints or Extremities Neurological: Cranial nerves II-XII grossly intact, DTR 2+/4 and Symmetrical, Neuro grossly intact Psych/Mental Status: Normal Affect, Appropriate. Weight / BMI Weight Weight: 146 lb 12.8 oz Body Mass Index (BMI) 26.9 ABG / Lab / Microbiology Data Result Diagrams: 04/20/22 06:05 04/20/22 06:05 Radiography Diagnostic Testing: Radiology Impression Hip/Pelvis X-Ray 04/20/22 18:45 IMPRESSION: Multiple intraoperative images submitted of the left proximal femur. See surgical report for full details. Electronically Signed: Mic Allison MD at 21:37 EDT , Meaningful Use Info Meaningful Use Diagnoses (Choose all that apply): None applicable Discharge Plan Admission Admit Date/Time: 04/19/22 21:02 Primary Reason for Your Visit: Closed left hip fracture Attending Provider: Tyler Thomas Primary Care Provider: Gregg Celis Consulting Providers: Katja Sunmer ; Kulwinder Howard Discharge Orders/Prescriptions Prescriptions: New oxycodone 5 mg Tablet 2.5 mg PO Q4H PRN PRN (Reason: Pain Score 4-10) 3 Days Qty: 7 0RF sennosides-docusate sodium [Stool Softener-Stimulant Laxat] 8.6-50 mg Tablet 2 tab PO BID Qty: 0 0RF Continued lisinopril 10 mg tablet 10 mg PO DAILY Label Comments: TAKE 1 TABLET BY MOUTH ONCE DAILY Prilosec 20 mg DAILY aspirin 81 mg Tablet 81 mg PO DAILY calcium 600 mg Capsule 600 mg PO DAILY cyanocobalamin (vitamin B-12) [Vitamin B-12] 1,000 mcg Tablet 1,000 mcg PO DAILY folic acid 400 mcg Tablet 400 mcg PO DAILY ascorbic acid (vitamin C) [Vitamin C] 500 mg Tablet 500 mg PO DAILY magnesium 250 mg Tablet 250 mg PO DAILY fluticasone propionate [Flonase Allergy Relief] 50 mcg/actuation [place],Suspension 1 spray INTRANASAL DAILY PRN (Reason: allergies) omega-3 fatty acids Capsule 1,000 mg PO DAILY cholecalciferol (vitamin D3) [Vitamin D3] 50 mcg (2,000 unit) Tablet 50 mcg PO QWEEK Probiotic 3 billion cell Capsule 3 cell PO DAILY Discontinued prednisone 10 mg tablet 40 mg PO DAILY Label Comments: TAKE 4 TABLETS BY MOUTH ONCE DAILY FOR 3 DAYS WITH FOOD, THEN 2 TABLETS ONCE DAILY FOR 3 DAYS, THEN 1 TABLET ONCE DAILY FOR 1 DAY Referrals / Follow Up: Kulwinder Howard MD [Med Staff - Active Staff] - Within 2 Weeks Gregg Celis MD [Primary Care Provider] - Within 2 Weeks Disposition Disposition (needs filled in before D/C Order can be placed): Residential Facility Charges/Coding Visit Charges Inpatient E&M: 97819 Disch Hosp
--- NOTE | 2022-04-21 13:23 | PN.ORTHO_ITS ---
Subjective Subjective Patient is s/p left sided short intertrochanteric nail with Dr. Howard on 04/20/2022. Patient resting comfortably in bed. Rates pain 3/ 10 at rest. With movement 7/10. States taking Tylenol and oxycodone as needed and ice help to relieve pain. Patient has been up with therapy. Walking with the assit of a walker. Afebrile, no chest pain, shortness of breath, negative calf pain/ erythema, and no other signs of DVT. Objective Data Objective Data Vital Signs: Vital Signs Temp Pulse Resp BP Pulse Ox O2 Del Method 98.1 F 82 14 110/76 96 Room Air 04/21/22 09:42 04/21/22 09:42 04/21/22 09:42 04/21/22 09:42 04/21/22 09:42 04/21/22 09:42 Oxygen Delivery Method Room Air Weight: 66.587 kg Body Mass Index (BMI) 26.9 Intake & Output: Intake and Output for Last 24 Hours 04/19/22 04/20/22 04/21/22 23:59 23:59 23:59 Intake Total 1191.67 / 1191.67 1046.67 / 1046.67 Output Total 1150 / 1350 450 / 450 Balance 41.67 / -158.33 596.67 / 596.67 Lab / Micro Data Result Diagrams: 04/20/22 06:05 04/20/22 06:05 Radiography Diagnostic Testing: Radiology Impression Hip/Pelvis X-Ray 04/20/22 18:45 IMPRESSION: Multiple intraoperative images submitted of the left proximal femur. See surgical report for full details. Electronically Signed: Mic Allison MD at 21:37 EDT , Physical Exam Narrative Patient resting comfortably in bed No signs of acute distress Satting well on room air Left lower extremity Limb is warm to touch, Sensation intact throughout entire lower extremity, including saphenous, sural, superficial and deep peroneal, and tibial distri bution. DP/PT pulses bounding. Dorsi and plantar flexion 5/5 Dressing small area of sanguinous drainage at most proximal incision. Calf nontender to palpation, no erythema, no edema. Negative Homans Assessment & Plan Assessment/Plan (1) Closed left hip fracture: PLAN: Patient is status post left short intertrochanteric nail with Dr. Howard 04/20/2022 1. Will continue PT today weightbearing as tolerated. 2. Patient will follow up for his post op appointment in the office in 2 weeks. This will need to be arranged. 3. WBC 17.4 acute reactive leukocytosis: Has been on prednisone for unidentified reaction recently. No acute systemic signs of infection. will monitor, and likely self resolve. Ultimately defer to primary team. 4. H/H 13.6/40.6 5. DVT prophylaxis : Aspirin 81 mg twice daily x4 weeks 6. Pain control: patient instructed to take tylenol 500mg 2 tablets TID scheduled and oxycodone 1-2 tablets every 4-6 hours only as needed for pain control. 7. From an orthopedic standpoint okay for discharge. Ultimately deferred to primary team. 8. ok to remove post op dressing. post op day 5.
== END 2022-04-21 15:21 | disposition skilled nursing facility (03) | DRG 482 ==
LOC: ED 21:17 → MS3 21:18
PROVIDERS: Orthopaedic Surgery; Admitting Provider Family Medicine; Emergency Provider Emergency Medicine; PCP Internal Medicine; Visit Provider Internal Medicine
PROC: 0QS706Z Reposition Left Upper Femur with Intramedullary Internal Fixation Device, Open Approach (ICD-10-PCS; CPT 27245; principal; 2022-04-20 16:45)
DX: M80.052A Age-related osteoporosis with current pathological fracture, left femur, initial encounter for fracture (principal); E78.00 Pure hypercholesterolemia, unspecified; I10 Essential (primary) hypertension; K21.9 Gastro-esophageal reflux disease without esophagitis; W18.09XA Striking against other object with subsequent fall, initial encounter; L23.9 Allergic contact dermatitis, unspecified cause; S31.811A Laceration without foreign body of right buttock, initial encounter; Y92.009 Unspecified place in unspecified non-institutional (private) residence as the place of occurrence of the external cause; X58.XXXA Exposure to other specified factors, initial encounter; Z79.82 Long term (current) use of aspirin; Z79.52 Long term (current) use of systemic steroids; Z79.899 Other long term (current) drug therapy; Z78.0 Asymptomatic menopausal state
CPT/HCPCS: 71045; 73501; 73502; 76000; 80053; 81001; 85025; 85610; 85730; 86850; 86900; 86901; 93005; 97162; 97166; 99285; C1713; J7030; A4216; J2405

== ENCOUNTER 2022-04-21 15:35 | Inpatient (IN) | payer MEDICARE, OTHER, SELFPAY ==
[2022-04-21 15:53] VITALS: BP 156/51; PULSE 98; RESP 18; TEMP 36.8; O2SAT 96; BMI 26.9
[2022-04-21 19:16] VITALS: BP 144/58; PULSE 90; RESP 18; TEMP 36.7; O2SAT 95
[2022-04-21 19:50] VITALS: O2SAT 94
[2022-04-21] MEDS: oxyCODONE 5 MG Tablet 2.5 MG PO (21:12)
[2022-04-21] MEDS: Senna/Docusate Sodium 1 Tablet 2 TABLET PO (21:12)
[2022-04-22] MEDS: oxyCODONE 5 MG Tablet 2.5 MG PO ×3 (05:17→20:16)
[2022-04-22 06:03] LABS: Anion Gap 5 (5-15); BUN 10 mg/dL (7-18); BUN/Creat Ratio 16.9 RATIO (10-20); Calcium,Total 8.2 mg/dL (8.5-10.1); Chloride 103 mmol/L (98-107); Creatinine, Serum 0.59 mg/dL (0.55-1.02); EST Glomerular Filtration Rate 103 mL/min (>60); Est Glom Filt Rate - Afr Amer 124 mL/min (>60); Estimated Creatinine Clearance 32.17 ml/min; Glucose 125 mg/dL (74-106); Magnesium 2.2 mg/dL (1.6-2.6); Phosphorus 2.3 mg/dL (2.5-4.9); Sodium Level 136 mmol/L (136-145)
[2022-04-22 07:49] VITALS: BP 147/69; PULSE 100; RESP 18; TEMP 37.3; O2SAT 93
[2022-04-22] MEDS: Pantoprazole Sodium 20 MG Tablet PO (07:58)
[2022-04-22] MEDS: Aspirin 81 MG TAB.CHEW PO (07:58)
[2022-04-22] MEDS: Ascorbic Acid 500 MG Tablet PO (07:58)
[2022-04-22] MEDS: Lisinopril 10 MG Tablet PO (07:58)
[2022-04-22] MEDS: Senna/Docusate Sodium 1 Tablet 2 TABLET PO ×2 (07:58→20:27)
[2022-04-22] MEDS: Calcium (Elemental) 500 MG Tablet PO (07:58)
[2022-04-22] MEDS: Cyanocobalamin 500 MCG Tablet 1000 MCG PO (07:58)
[2022-04-22 09:06] VITALS: BP 121/72; BP 134/75; BP 150/62; PULSE 114; PULSE 121; PULSE 98
[2022-04-22 10:00] VITALS: PULSE 98
--- NOTE | 2022-04-22 12:17 | PCM.HP.STD ---
[facility] - General General Date of Admission: 04/21/22 Date of Service: 04/22/22 Chief Complaint: Debility due to hip fracture. [facility] Narrative ELEONORA MOBLEY, is a 81-year-old F with a past medical history of hypertension and GERD who presented to the ED at [facility] on04/19/22 after a mechanical fall c/o Left hip pain. X-ray in the emergency department showed a intertrochanteric fracture of the left femoral neck. She was admitted to the hospital and consultation was obtained with Dr. Kulwinder Howard. She was taken to surgery on 04/20/2022 and had an open reduction internal fixation with an intramedullary nail. She had no significant post-op complications and PT/OT recommended inpt acute rehab prior to discharging home. she was transferred to the acute rehab unit at [facility] on 04/21/22 for 3 hours of therapy daily to restore function/independence at or near her level prior to the fall/fracture. Eleonora lives alone in a one-story home with a basement laundry. There are 4 steps with 1 HR to enter her home. Prior to the fall she was ambulating with no AD's. the hospital chart was personally reviewed. Calcium and phosphorous were low today at 8.2 and 2.3 respectively. Fasting blood sugar is mildly elevated at 125. Sodium and potassium are within normal limits. 1 day postoperatively the hemoglobin was 13.6. She is currently only on 1 ASA daily and no other pharmacologic DVT prophylaxis. [facility] Medical History (Updated 04/22/22 @ 14:[address] Rita Patel DO) GERD (gastroesophageal reflux disease) Hiatal hernia High cholesterol Hypertension Left carotid bruit Non-smoker Osteoporosis Post-menopausal Home Medications Prilosec 20 mg DAILY hiatal hernia 04/19/22 [History Last Taken 04/19/22 09:00] aspirin 81 mg tablet 81 mg PO DAILY blood thinner 04/19/22 [History Last Taken 04/19/22 09:00] lisinopril 10 mg tablet 10 mg PO DAILY bp 04/19/22 [History Last Taken 04/21/22] ascorbic acid (vitamin C) 500 mg tablet (Vitamin C) 500 mg PO DAILY Check with primary doctor 04/20/22 [History Last Taken Unknown] calcium 600 mg capsule 600 mg PO DAILY Check with primary doctor 04/20/22 [History Last Taken Unknown] cholecalciferol (vitamin D3) 50 mcg (2,000 unit) tablet (Vitamin D3) 50 mcg PO QWEEK Check with primary doctor 04/20/22 [History Last Taken Unknown] cyanocobalamin (vitamin B-12) 1,000 mcg tablet (Vitamin B-12) 1,000 mcg PO DAILY Check with primary doctor 04/20/22 [History Last Taken Unknown] fluticasone propionate 50 mcg/actuation nasal spray,suspension (Flonase Allergy Relief) 1 spray intranasal DAILY PRN allergies 04/20/22 [History Last Taken Unknown] folic acid 400 mcg tablet 400 mcg PO DAILY Check with primary doctor 04/20/22 [History Last Taken Unknown] lactobacillus combination no.4 3 billion cell capsule (Probiotic) 3 cell PO DAILY Check with primary doctor 04/20/22 [History Last Taken Unknown] magnesium 250 mg tablet 250 mg PO DAILY Check with primary doctor 04/20/22 [History Last Taken Unknown] omega-3 fatty acids 1,000 mg PO DAILY Check with primary doctor 04/20/22 [History Last Taken Unknown] omeprazole 20 mg capsule,delayed release 20 mg PO DAILY hiatal hernia 04/21/22 [History Last Taken 04/21/22] oxycodone 5 mg tablet 2.5 mg PO Q4H PRN PRN Pain Score 4-10 3 days #7 tabs 04/21/22 [Rx Last Taken 04/21/22 14:47 5 mg] sennosides 8.6 mg-docusate sodium 50 mg tablet (Stool Softener-Stimulant Laxative) 2 tab PO BID constipation 04/21/22 [History Last Taken 04/20/22] Allergy/AdvReac Type Severity Reaction Status Date / Time No Known Allergies Allergy Verified 04/19/22 20:19 Family History (Updated 04/22/22 @ 13:[address] Rita Patel DO) Mother Heart disease Diabetes Father Heart disease Brother Heart disease Surgical History (Updated 04/22/22 @ 13:[address] Rita Patel DO) History of open reduction and internal fixation (ORIF) procedure Social History (Updated 04/22/22 @ 13:[address] Rita Patel DO) household members: none and other details: she has children that live within a few mile of her tht can assist housing: house current occupational status: retired Smoking Status: Never smoker alcohol intake: never substance use type: does not use ROS Constitutional Constitutional: Reports difficulty sleeping; Denies anorexia, change in weight, chills, fatigue, fever(s), night sweats or weakness Eyes Eyes: Denies blurry vision, change in vision, eye pain or loss of vision ENT HEENT: Denies abnormal hearing, dysphagia, headache(s), hearing loss, nasal congestion or sore throat Cardiovascular Cardiovascular: Reports lightheadedness; Denies chest pain, dyspnea on exertion, edema, orthopnea, palpitations, paroxysmal nocturnal dyspnea or syncope Respiratory/Chest Respiratory/Chest: Denies cough, dyspnea, shortness of breath at rest, shortness of breath with exertion or wheezing Gastrointestinal Gastrointestinal: Reports other Details: No BM since 04/19/22 but, she does not feel constipated. ; Denies abdominal pain, constipation, diarrhea, dyspepsia, hematemesis, hematochezia, nausea or vomiting Genitourinary Genitourinary: Denies dysuria, hematuria, nocturia, urinary frequency, urinary hesitancy, urinary incontinence or urinary urgency Musculoskeletal Musculoskeletal: Reports back pain, joint pain and muscle cramps; Denies joint swelling or neck pain Integumentary Integumentary: Denies bleeding lesions, change in hair, changing lesions, jaundice, non-healing lesions or sores Neurologic Neurologic: Reports dizziness; Denies confusion, disequilibrium, focal weakness, headache(s), paresthesias, seizures or tremor(s) Psychiatric Psychiatric: Denies anxiety, depression, homicidal ideation or suicidal ideation Endocrine Endocrinology: Denies change in body appearance, polydipsia or polyuria Hematologic/Lymphatic Hematologic/Lymphatic: Denies easy bleeding, easy bruising or lymphadenopathy Allergic/Immunologic Allergic/Immunologic: Denies rhinitis, eczemia or asthma Vital Signs Vital Signs Vital Signs: 04/21/22 15:53 04/21/22 19:16 04/21/22 19:50 Temperature 98.3 F 98.0 F Temperature Source Oral Temporal Pulse Rate 98 90 Pulse Rate [Lying] Pulse Rate [Sitting (for 1 minute prior to obtaining)] Pulse Rate [Standing (for 1 minute prior to obtaining)] Respiratory Rate 18 18 Respiratory Effort Normal Non-Labored Respiratory Depth Normal Respiratory Pattern Normal Blood Pressure 156/51 H 144/58 H Blood Pressure [Lying] Blood Pressure [Sitting (for 1 minute prior to obtaining)] Blood Pressure [Standing (for 1 minute prior to obtaining)] Blood Pressure Mean 86 86 Blood Pressure Mean [Lying] Blood Pressure Mean [Sitting (for 1 minute prior to obtaining)] Blood Pressure Mean [Standing (for 1 minute prior to obtaining)] Blood Pressure Source Monitor Monitor Blood Pressure Position Semi-Fowlers Semi-Fowlers Blood Pressure Location Right Arm Left Arm Pulse Ox 96 95 94 Oxygen Delivery Method Room Air Room Air Room Air 04/22/22 07:49 04/22/22 09:06 04/22/22 10:00 Temperature 99.1 F Temperature Source Temporal Pulse Rate 100 98 Pulse Rate [Lying] 98 Pulse Rate [Sitting (for 1 minute prior to obtaining)] 114 H Pulse Rate [Standing (for 1 minute prior to obtaining)] 121 H Respiratory Rate 18 Respiratory Effort Respiratory Depth Respiratory Pattern Blood Pressure 147/69 H Blood Pressure [Lying] 150/62 H Blood Pressure [Sitting (for 1 minute prior to obtaining)] 134/75 H Blood Pressure [Standing (for 1 minute prior to obtaining)] 121/72 H Blood Pressure Mean 95 Blood Pressure Mean [Lying] 91 Blood Pressure Mean [Sitting (for 1 minute prior to obtaining)] 94 Blood Pressure Mean [Standing (for 1 minute prior to obtaining)] 88 Blood Pressure Source Monitor Blood Pressure Position Semi-Fowlers Blood Pressure Location Right Arm Pulse Ox 93 Oxygen Delivery Method Room Air Weight Weight: 146 lb 9.718 oz Body Mass Index (BMI) 26.9 Physical Exam Const alert, oriented x3, no apparent distress and average body habitus Constitutional Narrative: Has not been sleeping well at night due to urinating a lot and pain. She also does not sleep well at night at home. she tells me she cat naps. General Appearance: cooperative, comfortable and well kempt; Negative for in distress HEENT normocephalic HEENT Narrative: MM are dry. She is not drinking water much because she urinated a lot yesterday. Eyes PERRL, EOMs intact bilaterally, conjunctivae normal, no scleral icterus, no papilledema and normal visual davies by confrontation Eyes Narrative: Eye are blue and there is no DC from the eyes or mattering of the eye lids. General Eye: normal appearance of both eyes Neck supple Neck Narrative: There is a left carotid bruit present and she tells me that she has had to carotid US's in the past. 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 Does not feel constipated. Extremity normal capillary refill, no calf tenderness and no pedal edema Skin Wound Narrative: Surgical incisions have dressings that are not to be removed yet. Could not examine. There is no active bleeding. Neuro oriented x3, CN's II-XII intact bilaterally, moves all extremities, no focal motor deficits and no sensory deficits noted Psych mental status grossly normal, thought process normal, cooperative, affect normal, speech normal and activity/motor behavior normal Results Lab / Micro Data Result Diagrams: 04/22/22 05:30 Labs: Laboratory Results - last 24 hr 04/22/22 05:30: Sodium 136, Potassium 4.0, Chloride 103, Carbon Dioxide 28.0, Anion Gap 5, BUN 10, Creatinine 0.59, Estim Creat Clear Calc 32.17, Est GFR (MDRD) Af Amer 124, Est GFR (MDRD) Non-Af 103, BUN/Creatinine Ratio 16.9, Glucose 125 H, Calcium 8.2 L, Phosphorus 2.3 L, Magnesium 2.2 Assessment & Plan Assessment/Plan (1) Debility: (2) Closed left hip fracture: (3) History of open reduction and internal fixation (ORIF) procedure: PLAN: 04/20/[address] Howard....nail fixation (4) Osteoporosis: PLAN: Previously on Fosamax but, this has been discontinued at some point. Last BMD was at least 3 years or more ago. Currently on only Calcium and Vitamin D supplementation. Needs another BMD as an OP since it has been more than 2 years since the last and she has a hx of osteoporosis. (5) Hypertension: (6) High cholesterol: (7) GERD (gastroesophageal reflux disease): PLAN: Continue a PPI. (8) Left carotid bruit: PLAN: Plan PLAN PT for gait stability OT for ADL's Analgesics as needed Bowel protocol Fall precautions Assess for Anxiety/Depression GI prophylaxis with Protonix DVT prophylaxis with aspirin 81 mg p.o. twice daily with food Follow up with Dr. Howard and Dr. Celis following DC from Rehab Will request Dr. Celis's office notes including problem list, last progress note, medication list, last carotid ultrasound and last bone mineral density study. Start a Vitamin D supplement and check a level. Unit Exclusion This patient is an acute care inpatient being housed in the excluded unit because of capacity issues related to the disaster or emergency.: Yes Charges/Coding Visit Charges Inpatient E&M: 93523 Init Hosp L2
[2022-04-22 12:42] LABS: Albumin, Serum 2.7 g/dL (3.2-5.0)
[2022-04-22 12:56] LABS: Vitamin D,25 Hydroxy 67.6 ng/mL
--- NOTE | 2022-04-22 14:03 | REHABEVAL_ITS ---
Admission Information Primary Diagnosis:: Debility secondary to a fall resulting in a left hip fracture with ORIF on 04/20/[address] Kulwinder Howard. Status Changes from Prescreening?: No changes Identified Actual Problem List:: Skin Intergrity, Pain, ALteration in Cmfrt, Alteration in Sleep, Mobility Impaired, Self Care Deficit and Alteration-Leisure Activ. Potential Problem List:: DVT, Bleeding, Infection, UTI, Aspiration, Falls, Skin Integrity and Depression Risk of Complications DVT: YOEL Edouard and - (ASA 81 mg BID for 4 weeks from 04/20/22) Bleeding: Monitor Lab Values, Nursing to Teach Precautions for anti-coagulation therapy., Wound, if applicable, to be assessed every shift. and Stroke patients assessed for lethargy or change in status. Infection: Clinical Staff to Monitor for S/S of infection: and S/S of infection include fever, redness, warmth, etc. Urinary Tract Infection: Monitor for frequency, burning, discomfort, or incontinence. and Nursing will obtain urine sample for urinalysis and C&S when ordered. Aspiration: Clinical staff will monitor for coughing, drooling, congestion., Speech will evaluate swallowing and dsyphasia. and Nursing will monitor patient swallowing during meals. Falls: Patient will be evaluated for Fall Precautions and Patient will be placed on Fall Precautions as indicated per protocol. Skin Breakdown: Nursing will assess skin daily using assessment tool. and Nursing will place on Skin Breakdown Precautions as indicated. Pain: Clinical staff will assess patient's pain level per protocol., Medications will be given, if needed, and the pain level reassessed. and Other methods: Massage, distraction, decrease stimulus, etc. used PRN. Plan of Care Patient requires physician specializing in physical medicine and rehab oversight to provide close medical supervision of rehab issues including: Pain Management, Sleep Problems, Bowel and Bladder, Medical and co-morbidity Management, DVT prophylaxis, Rehabilitation Leadership and Coordination of treatment team Patient needs Physical Therapy: For a minimum of 1 hour and At least 5 out of 7 days Patient needs Physical Therapy to improve:: Mobility, Strengthening, Transfers, Stretching, ROM, Endurance, Stairs, Gait and Balance Patient needs Occupational Therapy: For a minimum of 1 hour and At least 5 out of 7 days Patient needs Occupational Therapy to improve ADL's incl.: Eating, Grooming, Bathing, Dressing, Toileting, Toilet transfers, Community Reintegration, Higher functioning activities, Household tasks, Adaptive Equipment, Splinting and Other activities as determined Patient requires 24/7 Rehabilitation Nursing for: Pain Issues, Identifying and preventing risk factors, Monitoring and reporting current medical conditions, Assisting with ambulation, transfer, and all ADL's, Teaching patients about disease process and medications, Family teaching, Providing safe environment, Bowel and Bladder Issues, Skin integrity and Medication Management Patient needs Occupational Hygienist/ Case Management for: Discharge Planning, Arranging Home Equipment or Services and Family Interventions Patient needs Dietary and Nutrition Services for: Adequate Nutrition, Nutritional Supplements and Nutritional Education Goals Patient will remain: free from falls and or injury at time of discharge. Patient will perform bed mobility at: MOD I level of assist. Patient will complete transfers from bed to chair at: MOD I level of assist. Patient will ambulate: - (200 feet with a wheeled walker at mod I on various surfaces) Patient will complete upper body dressing at: MOD I level of assist. Patient will complete lower body dressing at: MOD I level of assist. Patient will complete toileting at: - (Minimal assistance x1) Patient will perform bathing at: - (Supervised level) Patient will complete grooming at: MOD I level of assist. Patient will complete home management skills at: MOD I level of assist. Patient will achieve: 12 stairs (With 2 handrails at standby assist to allow access to her basement to do laundry.) Patient will have pain level of: of 3 or less Patient's skin will: remain intact Patient will receive: adequate nutrition. Discharge Planning Estimated Length of stay (days): 14 Anticipated D/C Destination: Home w/ family or friends
[2022-04-22] MEDS: Ergocalciferol 1.25 MG (50, 000 UNIT) Capsule PO (17:22)
[2022-04-22 19:35] VITALS: BP 145/62; PULSE 110; RESP 16; TEMP 37.1; O2SAT 92
[2022-04-22] MEDS: 0.9% Saline Lock 10 ML Syringe IV (21:08)
[2022-04-23] MEDS: oxyCODONE 5 MG Tablet 2.5 MG PO ×4 (00:39→22:05)
[2022-04-23 04:04] VITALS: BP 122/63; BP 135/72; BP 142/68; PULSE 104; PULSE 117; PULSE 94
[2022-04-23 06:28] LABS: Absolute Lymphocyte Count 1.08 X10^3/uL (0.83-4.51); Absolute Neutrophil Count 5.2 X10^3/uL (2.0-7.7); Basophil# 0.03 X10^3/uL; Basophil% 0.4 % (0-1); Eosinophil# 0.06 X10^3/uL; Eosinophils% 0.8 % (0-5); Hematocrit 29.6 % (37-47); Hemoglobin 10.1 g/dL (12.0-15.0); Lymphocyte # 1.08 X10^3/ul (0.83-4.51); Lymphocyte % 14.4 % (19-41); Mean Corp Hgb Conc 34.1 g/dL (32-36); Mean Corpuscular Hgb 33.7 pg (27.0-32.0); Mean Corpuscular Volume 98.7 fL (81-99); Mean Platelet Vol. 8.7 fl (6.2-12.0); Monocyte# 1.06 X10^3/uL; Monocyte% 14.1 % (0-10); NRBC Flagged by Analyzer 0 % (0-5); Neutrophil # 5.22 X10^3/uL (2.7-7.7); Neutrophil % 69.5 % (47-70); Platelet Count 206 K/mm3 (150-450); RBC Distribution Width CV 12.1 % (11.6-14.6); White Blood Count 7.5 K/mm3 (4.4-11.0)
[2022-04-23 07:38] VITALS: BP 142/68; PULSE 94; RESP 16; TEMP 37.3; O2SAT 94
[2022-04-23] MEDS: Cyanocobalamin 500 MCG Tablet 1000 MCG PO (08:23)
[2022-04-23] MEDS: Calcium (Elemental) 500 MG Tablet PO (08:23)
[2022-04-23] MEDS: Aspirin 81 MG TAB.CHEW PO (08:23)
[2022-04-23] MEDS: Ascorbic Acid 500 MG Tablet PO (08:24)
[2022-04-23] MEDS: Pantoprazole Sodium 20 MG Tablet PO (08:24)
[2022-04-23] MEDS: Lisinopril 10 MG Tablet PO (08:24)
[2022-04-23] MEDS: Senna/Docusate Sodium 1 Tablet 2 TABLET PO ×2 (08:24→20:33)
[2022-04-23] MEDS: Magnesium Hydroxide 30 ML UDC PO (17:13)
[2022-04-23 20:26] VITALS: BP 129/55; PULSE 95; RESP 18; TEMP 37.3; O2SAT 94
[2022-04-23] MEDS: 0.9% Saline Lock 10 ML Syringe IV (20:34)
[2022-04-24] MEDS: oxyCODONE 5 MG Tablet 2.5 MG PO ×2 (06:40→21:59)
[2022-04-24] MEDS: Pantoprazole Sodium 20 MG Tablet PO (08:23)
[2022-04-24] MEDS: Cyanocobalamin 500 MCG Tablet 1000 MCG PO (08:23)
[2022-04-24] MEDS: Senna/Docusate Sodium 1 Tablet 2 TABLET PO ×2 (08:23→20:13)
[2022-04-24] MEDS: Ascorbic Acid 500 MG Tablet PO (08:24)
[2022-04-24] MEDS: Aspirin 81 MG TAB.CHEW PO (08:24)
[2022-04-24] MEDS: Calcium (Elemental) 500 MG Tablet PO (08:24)
[2022-04-24] MEDS: Lisinopril 10 MG Tablet PO (08:24)
[2022-04-24 10:00] VITALS: BP 135/57; PULSE 87; RESP 18; TEMP 37.2; O2SAT 96
[2022-04-24 19:59] VITALS: BP 134/59; PULSE 85; RESP 18; TEMP 36.7; O2SAT 97
[2022-04-24 22:00] VITALS: RESP 16; O2SAT 96
[2022-04-25 05:37] LABS: Absolute Lymphocyte Count 1.78 X10^3/uL (0.83-4.51); Absolute Neutrophil Count 5.6 X10^3/uL (2.0-7.7); Basophil# 0.05 X10^3/uL; Basophil% 0.6 % (0-1); Eosinophil# 0.28 X10^3/uL; Eosinophils% 3.2 % (0-5); Hematocrit 28.9 % (37-47); Hemoglobin 9.5 g/dL (12.0-15.0); Lymphocyte # 1.78 X10^3/ul (0.83-4.51); Lymphocyte % 20.6 % (19-41); Mean Corp Hgb Conc 32.9 g/dL (32-36); Mean Corpuscular Hgb 32.8 pg (27.0-32.0); Mean Corpuscular Volume 99.7 fL (81-99); Mean Platelet Vol. 8.7 fl (6.2-12.0); Monocyte# 0.86 X10^3/uL; NRBC Flagged by Analyzer 0 % (0-5); Neutrophil # 5.55 X10^3/uL (2.7-7.7); Neutrophil % 64.2 % (47-70); Platelet Count 286 K/mm3 (150-450); RBC Distribution Width CV 12.4 % (11.6-14.6); RBC Distribution Width SD 44.8 fl (35.1-43.9); White Blood Count 8.6 K/mm3 (4.4-11.0)
[2022-04-25 05:57] LABS: International Normalized Ratio 1.1; Partial Thromboplast Time 25.1 Seconds (24.1-36.2); Prothrombin Time (Protime)PT. 13.7 SECONDS (11.7-14.9)
[2022-04-25 06:02] LABS: Anion Gap 4 (5-15); BUN 14 mg/dL (7-18); BUN/Creat Ratio 22.8 RATIO (10-20); Calcium,Total 8.2 mg/dL (8.5-10.1); Chloride 103 mmol/L (98-107); Creatinine, Serum 0.61 mg/dL (0.55-1.02); EST Glomerular Filtration Rate 99 mL/min (>60); Est Glom Filt Rate - Afr Amer 120 mL/min (>60); Estimated Creatinine Clearance 32.17 ml/min; Glucose 108 mg/dL (74-106); Potassium 4.2 mmol/L (3.5-5.1); Sodium Level 137 mmol/L (136-145)
[2022-04-25 07:25] VITALS: BP 139/60; PULSE 92; RESP 16; TEMP 36.4; O2SAT 100
[2022-04-25] MEDS: oxyCODONE 5 MG Tablet 2.5 MG PO ×3 (07:42→21:45)
[2022-04-25] MEDS: Pantoprazole Sodium 20 MG Tablet PO (07:44)
[2022-04-25] MEDS: Calcium (Elemental) 500 MG Tablet PO (07:44)
[2022-04-25] MEDS: Cyanocobalamin 500 MCG Tablet 1000 MCG PO (07:44)
[2022-04-25] MEDS: Ascorbic Acid 500 MG Tablet PO (07:44)
[2022-04-25] MEDS: Lisinopril 10 MG Tablet PO (07:44)
[2022-04-25 07:54] VITALS: RESP 18
[2022-04-25] MEDS: Aspirin 81 MG TAB.CHEW PO (08:06)
--- NOTE | 2022-04-25 12:03 | PN_ITS ---
Subjective Subjective Madeline was seen on team rounds today. Family was present in the room. Afebrile VSS Maintaining appropriate oxygen saturation on RA Oral intake is good Discussed with nursing - no problems that need addressed Reviewed the PT/OT/ST notes Medication list reviewed. All lab from today was personally reviewed. Hemoglobin is 9.5, down from 10.1 on 04/23/2022. Has been having some difficulty sleeping due to discomfort when trying to turn. She stated that last night there was a pillow tucked under her leg and she slept a little better. Still having pain in the left hip but tolerable. BMP is unremarkable. She denies chest pain, shortness of breath, palpitations, lightheadedness, N/V/abdominal pain, dysuria. She tells me that she is sleeping better at night. She still does not want to try something at night to help her sleep. She is still having pain in the left lateral hip area. Objective Data Objective Data Vital Signs: Vital Signs Temp Pulse Resp BP Pulse Ox O2 Del Method 97.6 F L 92 18 139/60 H 100 Room Air 04/25/22 07:25 04/25/22 07:25 04/25/22 07:54 04/25/22 07:25 04/25/22 07:25 04/25/22 07:25 Oxygen Delivery Method Room Air Weight: 146 lb 9.718 oz Body Mass Index (BMI) 26.9 Intake & Output: Intake and Output for Last 24 Hours 04/23/22 04/24/22 04/25/22 23:59 23:59 23:59 Intake Total 1910 / 1910 1620 / 1620 610 / 610 Output Total 2250 / 2250 1450 / 1450 400 / 400 Balance -340 / -340 170 / 170 210 / 210 Lab / Micro Data Result Diagrams: 04/25/22 05:30 04/25/22 05:30 Labs: Laboratory Results - last 24 hr 04/25/22 05:30: WBC 8.6, RBC 2.90 L, Hgb 9.5 L, Hct 28.9 L, MCV 99.7 H, MCH 32.8 H, MCHC 32.9, RDW Std Deviation 44.8 H, RDW Coeff of Russel 12.4, Plt Count 286, MPV 8.7, Immature Gran % (Auto) 1.400 H, Neut % (Auto) 64.2, Lymph % (Auto) 20.6, Harper % (Auto) 10.0, Eos % (Auto) 3.2, Baso % (Auto) 0.6, Absolute Neuts (auto) 5.6, Absolute Lymphs (auto) 1.78, Nucleated RBC % 0 04/25/22 05:30: PT 13.7, INR 1.1, APTT 25.1 04/25/22 05:30: Sodium 137, Potassium 4.2, Chloride 103, Carbon Dioxide 30.0, Anion Gap 4 L, BUN 14, Creatinine 0.61, Estim Creat Clear Calc 32.17, Est GFR (MDRD) Af Amer 120, Est GFR (MDRD) Non-Af 99, BUN/Creatinine Ratio 22.8 H, Glucose 108 H, Calcium 8.2 L Physical Exam Const alert, oriented x3 and no apparent distress General Appearance: cooperative, comfortable and well kempt; Negative for in distress Resp normal respiratory effort, normal air movement and clear to auscultation bilaterally Effort and Inspection: able to speak in complete sentences Cardio regular rate, regular rhythm, no rub and no gallops GI normal to inspection, nondistended, normoactive bowel sounds, soft to palpation and non-tender GI Narrative: No guarding with palpation. Does not feel constipated. Extremity no calf tenderness Skin Skin Narrative: The incision is intact with no dehiscence. There is no erythema and no purulent discharge. The swelling and bruising are resolving. Neuro CN's II-XII intact bilaterally and no focal motor deficits Assessment & Plan Assessment/Plan (1) Debility: PLAN: Continue PT/OT. (2) History of open reduction and internal fixation (ORIF) procedure: PLAN: We will follow-up with Dr. Kulwinder Howard post discharge from rehab. (3) Closed left hip fracture: PLAN: Pain is adequately controlled and will continue the current drug regimen. (4) Acute blood loss anemia: PLAN: Recheck a HH in 1 week. Charges/Coding Visit Charges Inpatient E&M: 57185 Subs Hosp L2
--- NOTE | 2022-04-25 13:00 | CASEMGMT ---
Social Work Team meeting held. Patient present as well as patient daughter and son. Patient to continue with further care and treatment on the Rehab Unit. Patient has been progressing in therapy. Medicare days to be determined. This social welfare research worker to updated patient/patient family on Medicare days when obtained. This social welfare research worker educating patient/patient family on Medicare day process and benefits. Patient plans to discharge to home alone with family for support. Patient to be re-teamed next week. Will continue to follow. Desmond MABRY, VALERIA
[2022-04-25 19:25] VITALS: BP 157/64; PULSE 91; RESP 18; TEMP 36.7; O2SAT 97
[2022-04-25 22:00] VITALS: RESP 16; O2SAT 97
[2022-04-26 07:44] VITALS: BP 148/60; PULSE 93; RESP 16; TEMP 36.2; O2SAT 95
[2022-04-26] MEDS: Ascorbic Acid 500 MG Tablet PO (08:27)
[2022-04-26] MEDS: Pantoprazole Sodium 20 MG Tablet PO (08:27)
[2022-04-26] MEDS: Lisinopril 10 MG Tablet PO (08:27)
[2022-04-26] MEDS: Calcium (Elemental) 500 MG Tablet PO (08:27)
[2022-04-26] MEDS: Aspirin 81 MG TAB.CHEW PO (08:27)
[2022-04-26] MEDS: Cyanocobalamin 500 MCG Tablet 1000 MCG PO (08:28)
[2022-04-26] MEDS: Senna/Docusate Sodium 1 Tablet 2 TABLET PO ×2 (08:28→21:28)
[2022-04-26] MEDS: oxyCODONE 5 MG Tablet 2.5 MG PO ×2 (08:30→22:08)
--- NOTE | 2022-04-26 12:43 | CASEMGMT ---
Social Work Patient approved 14 Medicare days with discharge on or by 05/05/2022. This socially responsible investment adviser communicated above information to patient. Patient voiced understanding and request for this socially responsible investment adviser to call patient son. Telephone call to patient sonDarell. No answer. No Voicemail. Desmond MABRY, VALERIA
[2022-04-26 19:12] VITALS: BP 136/58; PULSE 90; RESP 16; TEMP 37; O2SAT 98
[2022-04-26 22:00] VITALS: PULSE 84; RESP 16; O2SAT 96
[2022-04-27 07:55] VITALS: BP 150/57; PULSE 100; RESP 16; TEMP 36.6; O2SAT 100
[2022-04-27] MEDS: Lisinopril 10 MG Tablet PO (08:59)
[2022-04-27] MEDS: Cyanocobalamin 500 MCG Tablet 1000 MCG PO (08:59)
[2022-04-27] MEDS: Pantoprazole Sodium 20 MG Tablet PO (09:00)
[2022-04-27] MEDS: Calcium (Elemental) 500 MG Tablet PO ×2 (09:00→17:32)
[2022-04-27] MEDS: Ascorbic Acid 500 MG Tablet PO (09:00)
[2022-04-27] MEDS: Aspirin 81 MG TAB.CHEW PO (09:00)
[2022-04-27] MEDS: oxyCODONE 5 MG Tablet 2.5 MG PO ×2 (09:09→21:20)
--- NOTE | 2022-04-27 10:38 | WOUNDNOTE ---
wound photo: right buttock
--- NOTE | 2022-04-27 10:58 | PN_ITS ---
Progress Note Afebrile VSS-systolic blood pressures are consistently mildly elevated. Maintaining appropriate oxygen saturation on RA Oral intake is good Discussed with nursing - no problems that need addressed Reviewed the PT/OT notes Medication list reviewed. Madeline tells me that she slept well last night. Her pain is adequately controlled and she is taking the oxycodone twice a day. She is complaining of sciatic pain in her left buttocks, left groin and somewhat in the posterior thigh on the left. She has had sciatica for greater than 5 years now. The pain is increased with prolonged standing and prolonged sitting. She denies calf pain, chest pain, shortness of breath, cough, sore throat, dysuria. She tells me her bowels are moving regularly. No nausea or vomiting. Denies epigastric pain or heartburn. Physical Exam Const alert, oriented x3 and no apparent distress Constitutional Narrative: Sitting in the recliner at the bedside. General Appearance: cooperative and well kempt Resp normal respiratory effort and clear to auscultation bilaterally Cardio regular rate, regular rhythm and no gallops GI normal to inspection, nondistended, normoactive bowel sounds, soft to palpation and non-tender Extremity Extremity Narrative: She has swelling of the L ankle due to recent hip repair. YOEL hose are in place. No calf tenderness. Skin Skin Narrative: She has a skin tear on the R buttock....I examined with the wound care nurse and she tells me it is looking better. No erythema, no odor and no purulent DC. The incision on the R hip is intact with no dehiscence. There is no randy- incisional erythema and no purulent discharge. There is resolving ecchymosis and swelling present. Assessment & Plan Assessment/Plan (1) Sciatica: PLAN: Pt is agreeable to trying low dose Gabapentin to see if the pain improves while she is in the hospital. I suspect sciatica was exacerbated by the positioning in surgery for the L hip repair. (2) Debility: PLAN: Continue PT/OT. (3) History of open reduction and internal fixation (ORIF) procedure: PLAN: We will follow-up with Dr. Kulwinder Howard post discharge from rehab (4) Closed left hip fracture: (5) Skin tear: PLAN: Continue local wound care. Visit Charges Inpatient E&M: 83639 Subs Hosp L2
[2022-04-27] MEDS: Gabapentin 100 MG Capsule PO ×2 (12:01→17:33)
[2022-04-27 20:27] VITALS: BP 162/75; PULSE 96; RESP 16; TEMP 37.2; O2SAT 98
[2022-04-27] MEDS: Senna/Docusate Sodium 1 Tablet 2 TABLET PO (21:21)
[2022-04-28 08:17] VITALS: BP 145/71; PULSE 104; RESP 16; TEMP 37; O2SAT 96
[2022-04-28] MEDS: Calcium (Elemental) 500 MG Tablet PO ×2 (08:54→17:11)
[2022-04-28] MEDS: Aspirin 81 MG TAB.CHEW PO (08:54)
[2022-04-28] MEDS: Gabapentin 100 MG Capsule PO ×3 (08:54→17:11)
[2022-04-28] MEDS: Cyanocobalamin 500 MCG Tablet 1000 MCG PO (08:54)
[2022-04-28] MEDS: Pantoprazole Sodium 20 MG Tablet PO (08:55)
[2022-04-28] MEDS: Ascorbic Acid 500 MG Tablet PO (08:55)
[2022-04-28] MEDS: Lisinopril 10 MG Tablet PO (08:56)
[2022-04-28] MEDS: oxyCODONE 5 MG Tablet 2.5 MG PO ×2 (09:42→21:22)
[2022-04-28 10:00] VITALS: O2SAT 95
[2022-04-28 19:49] VITALS: BP 123/72; PULSE 95; RESP 20; TEMP 36.3; O2SAT 100
[2022-04-28] MEDS: Senna/Docusate Sodium 1 Tablet 2 TABLET PO (20:56)
[2022-04-29 07:35] VITALS: BP 143/59; PULSE 99; RESP 16; TEMP 36.9; O2SAT 98
[2022-04-29] MEDS: oxyCODONE 5 MG Tablet 2.5 MG PO (08:58)
[2022-04-29] MEDS: Aspirin 81 MG TAB.CHEW PO (08:59)
[2022-04-29] MEDS: Lisinopril 10 MG Tablet PO (08:59)
[2022-04-29] MEDS: Cyanocobalamin 500 MCG Tablet 1000 MCG PO (08:59)
[2022-04-29] MEDS: Calcium (Elemental) 500 MG Tablet PO ×2 (08:59→16:55)
[2022-04-29] MEDS: Ascorbic Acid 500 MG Tablet PO (08:59)
[2022-04-29] MEDS: Pantoprazole Sodium 20 MG Tablet PO (08:59)
[2022-04-29] MEDS: Senna/Docusate Sodium 1 Tablet 2 TABLET PO (09:00)
[2022-04-29] MEDS: Gabapentin 100 MG Capsule PO ×3 (09:04→16:55)
--- NOTE | 2022-04-29 11:50 | RAD_ITS ---
INDICATION: Left hip pain -- recent Left hip cephalomeduallry nail EXAMINATION/TECHNIQUE: X-RAY - LEFT XR Hip Unilateral with Pelvis when performed; 2-3 Views 3 VIEWS COMPARISON: 04/20/2022. FINDINGS: Left hip intramedullary nail is visualized internally stating a left intertrochanteric fracture, fracture planes are visualized in their anatomic alignment. No evidence of new fracture plane is seen. Degenerative bone changes are visualized. Mild overlying soft tissue prominence is seen. RAD/HIP, UNI W/ Pelvis 2-3 Views IMPRESSION: Unremarkable internal fixation prosthesis, near anatomic bone alignment. No evidence of new fracture is seen. Electronically Signed: Pedro Luis Moeller MD at 15:01 EDT ,
[2022-04-29] MEDS: Ergocalciferol 1.25 MG (50, 000 UNIT) Capsule PO (19:02)
[2022-04-29 20:22] VITALS: BP 141/63; PULSE 98; RESP 18; TEMP 36.8; O2SAT 99
[2022-04-30 07:39] VITALS: BP 125/48; PULSE 97; RESP 16; TEMP 36.9; O2SAT 100
[2022-04-30] MEDS: Aspirin 81 MG TAB.CHEW PO (08:24)
[2022-04-30] MEDS: Gabapentin 100 MG Capsule PO ×3 (08:24→16:55)
[2022-04-30] MEDS: Calcium (Elemental) 500 MG Tablet PO ×2 (08:24→16:55)
[2022-04-30] MEDS: Lisinopril 10 MG Tablet PO (08:24)
[2022-04-30] MEDS: Cyanocobalamin 500 MCG Tablet 1000 MCG PO (08:25)
[2022-04-30] MEDS: Ascorbic Acid 500 MG Tablet PO (08:25)
[2022-04-30] MEDS: Pantoprazole Sodium 20 MG Tablet PO (08:25)
[2022-04-30] MEDS: oxyCODONE 5 MG Tablet 2.5 MG PO ×2 (08:28→21:00)
--- NOTE | 2022-04-30 13:52 | PN_ITS ---
Progress Note This is a late entry for 04/29/22. Afebrile VSS Maintaining appropriate oxygen saturation on RA Oral intake is good Discussed with nursing - no problems that need addressed. Reviewed the PT/OT notes Medication list reviewed. I saw Madeline yesterday because she was c/o increased pain in the L hip. She tells me that the pain got better after she did the Nu-Step for a time. she is sleeping much better at night. She denies calf pain, shortness of breath, chest pain, palpitations, lightheadedness, dysuria. She is having regular bowel movem ents. Physical Exam Const alert, oriented x3 and no apparent distress Constitutional Narrative: Lying in bed with her pants off so I could adequately examine the incision. She does not appear to be in any distress. General Appearance: cooperative Resp clear to auscultation bilaterally Cardio regular rate, regular rhythm and no gallops GI normal to inspection, nondistended, normoactive bowel sounds, soft to palpation and non-tender Extremity no calf tenderness and no pedal edema Skin General Skin Exam: no breakdown Rashes: no rashes Wound Narrative: The incision/gail are intact. There is no DC. No erythema. Bruising and swelling are resolving. No pain with palpation around the incision. Assessment & Plan Assessment/Plan (1) Debility: PLAN: Continue PT/OT. (2) Closed left hip fracture: (3) History of open reduction and internal fixation (ORIF) procedure: PLAN: Follow-up with Dr. Kulwinder Howard post discharge. (4) Acute blood loss anemia: PLAN: recheck an HH on 05/02/22 (5) Skin tear: PLAN: Healing. No evidence of infection. Continue the current dressing instructions. (6) Sciatica: PLAN: Continue gabapentin. She no longer has pain down the left leg but, still with very mild pain in the left buttock. Madeline is not good at answering direct questions and it makes it very difficult to understand just what she is feeling. I feel that she is healing well and progressing as expected. I reiterated to her that the bone will take 6-8 weeks and possibly longer to heal and she just had surgery and she can expect to have pain. I explained the goal of the pain medication is not to totally eradicate pain but, to make it tolerable. I ordered a XRAY to make sure there is been no loosening or displacement of the nail. Visit Charges Inpatient E&M: 00918 Subs Hosp L2
[2022-04-30 20:29] VITALS: BP 129/58; PULSE 81; RESP 16; TEMP 36.4; O2SAT 99
[2022-04-30] MEDS: Senna/Docusate Sodium 1 Tablet 2 TABLET PO (20:32)
[2022-05-01 07:44] VITALS: BP 136/69; PULSE 97; RESP 18; TEMP 36.6; O2SAT 97
[2022-05-01] MEDS: Ascorbic Acid 500 MG Tablet PO (08:41)
[2022-05-01] MEDS: Gabapentin 100 MG Capsule PO ×3 (08:41→17:05)
[2022-05-01] MEDS: Lisinopril 10 MG Tablet PO (08:41)
[2022-05-01] MEDS: Aspirin 81 MG TAB.CHEW PO (08:41)
[2022-05-01] MEDS: Cyanocobalamin 500 MCG Tablet 1000 MCG PO (08:41)
[2022-05-01] MEDS: oxyCODONE 5 MG Tablet 2.5 MG PO ×2 (08:41→20:37)
[2022-05-01] MEDS: Calcium (Elemental) 500 MG Tablet PO ×2 (08:41→17:05)
[2022-05-01] MEDS: Pantoprazole Sodium 20 MG Tablet PO (08:41)
--- NOTE | 2022-05-01 12:59 | PN_ITS ---
Progress Note Afebrile VSS Maintaining appropriate oxygen saturation on RA Oral intake is good Discussed with nursing - no problems that need addressed Reviewed the PT/OT notes Medication list reviewed. Tells me that she is sleeping well at night now. The pain is getting better and she is able to do therapy more easily. She tells me that when she gets up and moving the pain lessens. She likes doing the Nu Step. 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 Does not feel constipated. Extremity normal capillary refill, no calf tenderness and no pedal edema Skin Skin Narrative: The incision is intact with no dehiscence. There is no erythema and no purulent discharge. The swelling and bruising are resolving. General Skin Exam: no breakdown Rashes: no rashes Psych affect normal and activity/motor behavior normal Assessment & Plan Assessment/Plan (1) Debility: PLAN: Continue PT/OT. (2) Closed left hip fracture: PLAN: Healing with no sign of infection (3) History of open reduction and internal fixation (ORIF) procedure: PLAN: Follow-up with Dr. Kulwinder Howard post discharge. (4) Acute blood loss anemia: PLAN: recheck an HH on 05/03/22 and a [facility] (5) Skin tear: PLAN: Healing. No evidence of infection. Continue the current dressing instructions. (6) Sciatica: PLAN: she is no longer c/o this and I think her pain now is musculoskeletal due to the recent hip surgery Visit Charges Inpatient E&M: 88206 Subs Hosp L2
[2022-05-01 19:30] VITALS: BP 143/66; PULSE 90; RESP 16; TEMP 36.6; O2SAT 98
[2022-05-01] MEDS: Senna/Docusate Sodium 1 Tablet 2 TABLET PO (20:37)
[2022-05-01 22:00] VITALS: PULSE 94; RESP 16; O2SAT 98
[2022-05-02] MEDS: Senna/Docusate Sodium 1 Tablet 2 TABLET PO (08:18)
[2022-05-02] MEDS: Pantoprazole Sodium 20 MG Tablet PO (08:19)
[2022-05-02] MEDS: Ascorbic Acid 500 MG Tablet PO (08:19)
[2022-05-02] MEDS: Lisinopril 10 MG Tablet PO (08:19)
[2022-05-02] MEDS: Calcium (Elemental) 500 MG Tablet PO ×2 (08:19→17:26)
[2022-05-02] MEDS: Gabapentin 100 MG Capsule PO ×3 (08:19→17:26)
[2022-05-02] MEDS: Cyanocobalamin 500 MCG Tablet 1000 MCG PO (08:19)
[2022-05-02] MEDS: Aspirin 81 MG TAB.CHEW PO (08:19)
[2022-05-02] MEDS: oxyCODONE 5 MG Tablet 2.5 MG PO ×2 (08:19→22:03)
--- NOTE | 2022-05-02 09:58 | NURSING ---
spoke with Candice @ Dr Townsend office. Remove gail 2 weeks post op
[2022-05-02 10:00] VITALS: BP 135/69; PULSE 91; RESP 16; TEMP 37; O2SAT 96
--- NOTE | 2022-05-02 13:00 | CASEMGMT ---
Social Work Team meeting held. Patient present as well as patient family. Discharge date set for 05/05/2022. Patient plans to discharge to home alone or with a family member. Team is recommending for patient to have continued services for physical and occupational therapy as well as a home health aide. Patient is agreeable to recommendation and request for home health services to be set up through [facility] ([facility]). Patient reports to need a walker. Patient is agreeable to walker being set up through [facility]. Patient family plans to get patient a shower chair and bedside commode. Patient family plans to transport patient home at time of discharge. [facility] This social services aide made referral for physical and occupational therapy as well as a home health aide. Order initiated. Social Work to continue to follow for discharge planning. Proposed discharge date: 05/05/2022 PLAN: Discharge to home alone vs. with family with home health care. Desmond MABRY, VALERIA
--- NOTE | 2022-05-02 14:35 | PN_ITS ---
Subjective Subjective Madeline was seen on team rounds today. Family was present in the room for rounds. Afebrile VSS Maintaining appropriate oxygen saturation on RA Oral intake is good Discussed with nursing - no problems that need addressed Reviewed the PT/OT notes - doing much better today with therapy and has less pain. Medication list reviewed. Madeline tells me that she slept very well last night. Her pain is adequately co ntrolled. She is no longer complaining of sciatic pain. She denies dysuria, chest pain, shortness of breath, cephalgia, dysuria, N/V/D/C/ABD pain. Objective Data Objective Data Vital Signs: Vital Signs Temp Pulse Resp BP Pulse Ox O2 Del Method 98.6 F 91 16 135/69 H 96 Room Air 05/02/22 10:00 05/02/22 10:00 05/02/22 10:00 05/02/22 10:00 05/02/22 10:00 05/02/22 10:00 Oxygen Delivery Method Room Air Weight: 149 lb 14.629 oz Body Mass Index (BMI) 26.9 Intake & Output: Intake and Output for Last 24 Hours 04/30/22 05/01/22 05/02/22 23:59 23:59 23:59 Intake Total 800 / 800 Balance 800 / 800 Lab / Micro Data Result Diagrams: 04/25/22 05:30 04/25/22 05:30 Physical Exam Const alert, oriented x3 and no apparent distress Constitutional Narrative: Sitting in the recliner at the bedside and she appears comfortable. 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 Bruits: carotid bruit left GI normal to inspection, nondistended, normoactive bowel sounds, soft to palpation and non-tender GI Narrative: No guarding with palpation. Does not feel constipated. Extremity Extremity Narrative: She has swelling of the L ankle due to recent hip repair. YOEL smithe are in place. No calf tenderness. Skin Skin Narrative: The incision is intact with no dehiscence. There is no erythema and no purulent discharge. The swelling and bruising are resolving. General Skin Exam: no breakdown Rashes: no rashes Assessment & Plan Assessment/Plan (1) Debility: PLAN: Continue PT/OT. Plan DC on 05/05/22. F/U with Dr. Howard post DC (2) Closed left hip fracture: PLAN: Healing with no sign of infection (3) History of open reduction and internal fixation (ORIF) procedure: PLAN: Follow-up with Dr. Kulwinder Howard post discharge. (4) Acute blood loss anemia: PLAN: recheck an HH on 05/03/22 and a BMP (5) Skin tear: PLAN: Healing. No evidence of infection. Continue the current dressing instructions. (6) Sciatica: PLAN: She is no longer c/o this and I think her pain now is musculoskeletal due to the recent hip surgery. She thinks she would like to continue Gabapentin at DC and then maybe when she has recovered from the ORIF/FX then she will try and stop it. PLAN: Plan Family had many questions, mostly for the therapists and the SW. Will need a WW at [place]. Grab bars in the BR were recommended.....no suction type grab bars. She will also need a tub/shower bench. Charges/Coding Visit Charges Inpatient E&M: 52213 Subs Hosp L2
--- NOTE | 2022-05-02 15:55 | CHAPLAIN ---
Type of Pastoral Visit _x__ Initial Visit ___ Follow-up Visit ___ On-call Visit ___ General Patient Visit ___ Spiritual Assessment ___ Family Conference ___ Bereavement ___ Rapid Response ___ Code Blue ___ Other (describe below) Pastoral Care Referral From _x__ Patient _x__ Family ___ Nurse ___ Physician ___ Industrial Economist ___ Line Driver ___ Other (describe below) Sacrament/Intervention _x__ Active listening ___ Anointing ___ Taoism ___ Bereavement ___ Communion _x__ Yesica exploration ___ _x__ Life review _x__ Prayer ___ Reconciliation ___ Sacrament of Sick _x__ Supportive presence ___ Wedding ___ Other (describe below) Pastoral Comments patient is sitting up in chair; pt is very pleasant and welcoming; pt expresses positive words about her therapy; pt openly discusses her thoughts about where she will go next as she recovers; pt identifies as person of yesica and how that impacts her outlook and healing process; pt welcomes prayer; pt is expressive about thankfulness for visit and spiritual care support
--- NOTE | 2022-05-02 16:18 | CASEMGMT ---
Social [facility] patient. Desmond MABRY, VALERIA
[2022-05-02 19:17] VITALS: BP 135/60; PULSE 87; RESP 14; TEMP 37.1; O2SAT 99
[2022-05-02 22:00] VITALS: PULSE 85; RESP 15; O2SAT 99
[2022-05-03 07:23] VITALS: BP 123/58; PULSE 87; RESP 14; TEMP 36.7; O2SAT 97
[2022-05-03] MEDS: oxyCODONE 5 MG Tablet 2.5 MG PO ×2 (08:19→21:55)
[2022-05-03] MEDS: Aspirin 81 MG TAB.CHEW PO (08:19)
[2022-05-03] MEDS: Calcium (Elemental) 500 MG Tablet PO ×2 (08:19→17:34)
[2022-05-03] MEDS: Gabapentin 100 MG Capsule PO ×3 (08:19→17:34)
[2022-05-03] MEDS: Ascorbic Acid 500 MG Tablet PO (08:20)
[2022-05-03] MEDS: Pantoprazole Sodium 20 MG Tablet PO (08:20)
[2022-05-03] MEDS: Cyanocobalamin 500 MCG Tablet 1000 MCG PO (08:20)
[2022-05-03] MEDS: Lisinopril 10 MG Tablet PO (08:20)
[2022-05-03 12:45] LABS: Hematocrit 35.6 % (37-47); Hemoglobin 11.6 g/dL (12.0-15.0)
[2022-05-03 13:20] LABS: Anion Gap 4 (5-15); BUN 11 mg/dL (7-18); BUN/Creat Ratio 16.2 RATIO (10-20); Calcium,Total 9.1 mg/dL (8.5-10.1); Chloride 100 mmol/L (98-107); Creatinine, Serum 0.68 mg/dL (0.55-1.02); EST Glomerular Filtration Rate 88 mL/min (>60); Est Glom Filt Rate - Afr Amer 107 mL/min (>60); Estimated Creatinine Clearance 32.17 ml/min; Glucose 121 mg/dL (74-106); Potassium 4.2 mmol/L (3.5-5.1); Sodium Level 135 mmol/L (136-145)
--- NOTE | 2022-05-03 16:29 | NURSING ---
18 gail removed. incision well approx. no S/S infection. Left MARLENY. pt tolerated well
[2022-05-03 19:46] VITALS: BP 142/68; PULSE 90; RESP 20; TEMP 36.4; O2SAT 98
[2022-05-03] MEDS: Senna/Docusate Sodium 1 Tablet 2 TABLET PO (21:54)
[2022-05-03 22:00] VITALS: PULSE 90; RESP 16; O2SAT 97
[2022-05-04 07:45] VITALS: BP 123/61; PULSE 90; RESP 14; TEMP 36.9; O2SAT 95
[2022-05-04] MEDS: Pantoprazole Sodium 20 MG Tablet PO (08:19)
[2022-05-04] MEDS: Aspirin 81 MG TAB.CHEW PO (08:19)
[2022-05-04] MEDS: Cyanocobalamin 500 MCG Tablet 1000 MCG PO (08:19)
[2022-05-04] MEDS: Ascorbic Acid 500 MG Tablet PO (08:19)
[2022-05-04] MEDS: Lisinopril 10 MG Tablet PO (08:19)
[2022-05-04] MEDS: Calcium (Elemental) 500 MG Tablet PO ×2 (08:19→16:59)
[2022-05-04] MEDS: Gabapentin 100 MG Capsule PO ×3 (08:20→16:59)
[2022-05-04] MEDS: Senna/Docusate Sodium 1 Tablet 2 TABLET PO ×2 (08:21→21:32)
[2022-05-04] MEDS: oxyCODONE 5 MG Tablet 2.5 MG PO ×2 (08:24→21:38)
[2022-05-04 21:00] VITALS: BP 119/45; PULSE 69; RESP 18; TEMP 36.6; O2SAT 99
[2022-05-05 07:59] VITALS: BP 131/76; PULSE 98; RESP 16; TEMP 36.7; O2SAT 96
[2022-05-05] MEDS: Ascorbic Acid 500 MG Tablet PO (08:12)
[2022-05-05] MEDS: Cyanocobalamin 500 MCG Tablet 1000 MCG PO (08:12)
[2022-05-05] MEDS: Pantoprazole Sodium 20 MG Tablet PO (08:12)
[2022-05-05] MEDS: Lisinopril 10 MG Tablet PO (08:12)
[2022-05-05] MEDS: Gabapentin 100 MG Capsule PO (08:12)
[2022-05-05] MEDS: Calcium (Elemental) 500 MG Tablet PO (08:12)
[2022-05-05] MEDS: Aspirin 81 MG TAB.CHEW PO (08:13)
--- NOTE | 2022-05-05 09:53 | PCM.DC ---
Discharge Instructions Diet Discharge Diet: - (Low salt) Activity Discharge Activity: May Not Drive, May Shower and Use Walker Weight Bearing Status: Full weight bearing Keep extremity elevated above heart level: Left Leg Additional Activity Instructions:: Stay active. Get up at least every hour while awake and take a walk. This helps to prevent stiffness and makes it easier to get up from a chair and get going. In the long run you will have less pain and progress with therapy more quickly if you keep moving. Dressing / Incision Call your doctor if your incision/area has: Continuous Slow Oozing, Sudden Increased Bleeding, Increased Pain/ Swelling, Increased Redness and Foul Smelling Discharge Call your doctor if you observe: Fever of 101 or Higher, Numbness or Tingling, Shortness of breath, Dizziness, Fainting spells, Chest pain, Increased palpitations (irregular heartbeat), Calf discomfort and Uncontrolled pain Suture Line Care: Avoid Pulling/Pushing and Avoid Pinching/Bending Cleanse incision/area with: Soap & Water and - (If your clothing is irritating the incision you can apply a dressing to protect the incision. ) Follow Up Care Please Follow Up With: Kulwinder Howard MD Test Results: Test results from this visit will be discussed in further detail at your follow-up appointment, if applicable. Pending Tests Upon Discharge: none Discharge Plan Admission Admit Date/Time: 04/21/22 15:35 Primary Reason for Your Visit: Physical debility due to hip fracture. Attending Provider: Rita Patel Primary Care Provider: Gregg Celis Instructions Patient Instructions: Osteoporosis Regular Exercise, Osteoporosis Bone Loss, Osteoporosis Med, Hip Fx Surg Dc, Caring for Your Incision Additional Instructions / Restrictions: 1. You did very well in therapy. I do not expect you to have problems returning home. No tub baths until Dr. Howard tells you it is OK. You may take a shower. No driving until Dr. Howard releases you to drive. Look at the incision every day for the next 2 weeks and if there is redness, increased pain or swelling, any discharge from the incision or bleeding from the incision call Dr. Howard. 2. The skin tear on the Left buttock has healed but, the skin will be fragile and can break open again if there is friction. We will put a new protective pad on the area at discharge and you can leave it on until if falls off. 3. Your blood count dropped with surgery due to blood loss and this is normal. Your bone marrow has responded appropriately and the blood count is already increased since you arrived on rehab. 4. Your BP is well controlled. 5. It has been over 2 years since your last bone density study. I think you should ask Dr. Celis for a requisition to have another done. You are very heathy and active and will more than likely live a lot longer. Osteoporosis if untreated can lead to painful fractures.......you can have vertebral fractures without even falling and these are painful and can be debilitating. There is a doctor in [facility], Dr. Bennie Kincaid, who treats patients with osteoporosis. I know you need to take Prilosec for a hiatal hernia and reflux but, you should know that this medication can cause bone loss. 6. It has been a pleasure having you on rehab. You have worked hard and you are always pleasant. We have all enjoyed getting to know you. If you ever need rehab again we would be happy to welcome you back. Hopefully you will not need us but, if you do we are here for you. 7. I have given you a prescription for Gabapentin. This was started to help with the sciatica pain and you have been taking it 3 times a day with no adverse side effects. 7. If you have any questions after leaving rehab please feel free to call me. OFFICE: [phone] CELL: [phone] I am sending a copy of the discharge summary to Dr. Celis so he will know what happened in the hospital and rehab. I will also send a copy to Dr. Howard. Discharge Orders/Prescriptions Prescriptions: New aspirin [Enteric Coated Aspirin] 81 mg tablet,delayed release (DR/EC) 81 mg PO BID Qty: 1 0RF Rx Instructions: Take this medication twice a day until 05/19 and then decrease to once daily. gabapentin 100 mg Capsule 100 mg PO TIDCM Qty: 90 0RF Continued lisinopril 10 mg tablet 10 mg PO DAILY Label Comments: TAKE 1 TABLET BY MOUTH ONCE DAILY calcium 600 mg Capsule 600 mg PO DAILY cyanocobalamin (vitamin B-12) [Vitamin B-12] 1,000 mcg Tablet 1,000 mcg PO DAILY folic acid 400 mcg Tablet 400 mcg PO DAILY ascorbic acid (vitamin C) [Vitamin C] 500 mg Tablet 500 mg PO DAILY magnesium 250 mg Tablet 250 mg PO DAILY fluticasone propionate [Flonase Allergy Relief] 50 mcg/actuation [place],Suspension 1 spray INTRANASAL DAILY PRN (Reason: allergies) omega-3 fatty acids Capsule 1,000 mg PO DAILY cholecalciferol (vitamin D3) [Vitamin D3] 50 mcg (2,000 unit) Tablet 50 mcg PO QWEEK Probiotic 3 billion cell Capsule 3 cell PO DAILY omeprazole 20 mg Capsule,Delayed Release(Dr/Ec) 20 mg PO DAILY oxycodone 5 mg Tablet 2.5 mg PO Q4H PRN PRN (Reason: Pain Score 4-10) 3 Days Qty: 14 0RF Discontinued Prilosec 20 mg DAILY aspirin 81 mg Tablet 81 mg PO DAILY sennosides-docusate sodium [Stool Softener-Stimulant Laxat] 8.6-50 mg tablet 2 tab PO BID Referrals / Follow Up: Kulwinder Howard MD [Med Staff - Active Staff] - 05/11/22 3:00 pm Gregg Celis MD [Primary Care Provider] - 05/09/22 2:20 pm Disposition Disposition (needs filled in before D/C Order can be placed): Home Health Service
--- NOTE | 2022-05-05 11:05 | HP.PCM_ITS ---
HPI - General General Date of Admission: 04/21/22 Date of Service: 05/05/22 Chief Complaint: Debility due to hip fracture. HPI Narrative MADELINE MOBLEY, is a 81-year-old F with a past medical history of hypertension and GERD who presented to the ED at [facility] on04/19/22 after a mechanical fall c/o Left hip pain.? X-ray in the emergency department showed a intertrochanteric fracture of the left femoral neck.? She was admitted to the hospital and consultation was obtained with Dr. Kulwinder Howard.? She was taken to surgery on 04/20/2022 and had an open reduction internal fixation with an intramedullary nail.? She had no significant post-op complications and PT/OT recommended inpt acute rehab prior to discharging home.? She was transferred to the acute rehab unit at [facility] on 04/21/22 for 3 hours of therapy daily to restore function/independence at or near her level prior to the fall/fracture.? Lab at admission to rehab showed a decreased hemoglobin at 10.1 due to acute blood loss anemia related to surgery. The BMP was within normal limits. Calcium was low at 8.2 however when corrected for hypoalbuminemia calcium was within normal limits. Vitamin D level was 67.6 which is good. Madeline has a hx of Left side Sciatica and had a lot of radicular pain once PT really got going. She was started on Gabapentin 100 mg TID and the radicular pain improved. She has had no adverse reactions to gabapentin. Pain from the surgery was well controlled with Scheduled Tylenol and Oxycodone 2.5 mg usually 2-3 times a day. When she came to us she had a skin tear on the R buttock and she was being treated by the wound care nurse. during her stay the tear epithelialized and there was no opening in the skin at [place]. She was discharged with a Mepilex patch over the site of the previous skin tear to protect it from shear forces getting in and out of the car at [place]. She will leave this on until if falls off. Madeline did very well in therapy and I suspect this has a low to do with how active she was prior to the fracture. She lives by herself and was walking without an assistive device prior to the fall. At the time of discharge she had walked up to 130 feet on various surfaces with a wheeled walker independently. She was able to complete transfers from various heights independently. She could do 6 sit to stands in 30 seconds using the armrests to push. She was able to ascend/descend 3 steps at 4 inches with 1 handrail and a quad cane at contact-guard assist so that she could gain entry into her home. At the time of discharge she was independent with grooming, upper body dressing, lower body dressing, toilet transfer and toileting. She is supervision/set up for shower transfer. Madeline was discharged home for rehab on 05/05/22. I recommended she discuss obtaining a bone density study with Dr. Celis since she has not had 1 in at least 3 years (per the patient). She has been diagnosed with osteoporosis in the past and took Fosamax for a number of years but, quit due to stomach upset and reflux. She has hiatal hernia and is chronically on Prilosec which is known to cause bone loss. she is taking only Calcium and Vitamin D at the present time. We discussed alternative pharmacologic treatment for osteoporosis with Madeline and her dtr and specifically talked about Evista and Calcitonin. If desired she can be referred to endocrinology, Dr. Bennie Kincaid, in [place] for tx of osteoporosis if the new bone density study is in fact consistent with osteoporosis. Madeline was discharged home in stable condition. Vital signs at the time of discharge were temp 98 ?F, pulse rate 69-98, blood pressure 131/76 and pulse ox 96% on room air. Hemoglobin on 05/03/2022 was improving at 11.6. BMP was remarkable for a sodium of 135 but was otherwise unremarkable. BUN was 11 with a creatinine of 0.68. Calcium was 9.1 (the calcium supplement was increased to 500 mg Twice a day during her stay in rehab to help with healing the fracture. Calcium at admission to rehab was 8.2 but, when corrected for hypoalbuminemia the calcium was 9.0. She was instructed at [place] to continue wearing the compression stockings for at least 2-4 more weeks to help with swelling in the Left ankle. She will follow up with Dr. Howard and Dr. Celis post [place]. [facility] Medical History (Updated 04/30/22 @ 14:[address] Rita Patel, ) Closed left hip fracture GERD (gastroesophageal reflux disease) Hiatal hernia High cholesterol Hypertension Left carotid bruit Non-smoker Osteoporosis Post-menopausal Sciatica Home Medications lisinopril 10 mg tablet 10 mg PO DAILY bp 04/19/22 [History Last Taken 04/21/22] ascorbic acid (vitamin C) 500 mg tablet (Vitamin C) 500 mg PO DAILY Check with primary doctor 04/20/22 [History Last Taken Unknown] calcium 600 mg capsule 600 mg PO DAILY Check with primary doctor 04/20/22 [History Last Taken Unknown] cholecalciferol (vitamin D3) 50 mcg (2,000 unit) tablet (Vitamin D3) 50 mcg PO QWEEK Check with primary doctor 04/20/22 [History Last Taken Unknown] cyanocobalamin (vitamin B-12) 1,000 mcg tablet (Vitamin B-12) 1,000 mcg PO DAILY Check with primary doctor 04/20/22 [History Last Taken Unknown] fluticasone propionate 50 mcg/actuation nasal spray,suspension (Flonase Allergy Relief) 1 spray intranasal DAILY PRN allergies 04/20/22 [History Last Taken Unk nown] folic acid 400 mcg tablet 400 mcg PO DAILY Check with primary doctor 04/20/22 [History Last Taken Unknown] lactobacillus combination no.4 3 billion cell capsule (Probiotic) 3 cell PO DAILY Check with primary doctor 04/20/22 [History Last Taken Unknown] magnesium 250 mg tablet 250 mg PO DAILY Check with primary doctor 04/20/22 [History Last Taken Unknown] omega-3 fatty acids 1,000 mg PO DAILY Check with primary doctor 04/20/22 [History Last Taken Unknown] omeprazole 20 mg capsule,delayed release 20 mg PO DAILY hiatal hernia 04/21/22 [History Last Taken 04/21/22] aspirin 81 mg tablet,delayed release (Enteric Coated Aspirin) 81 mg PO BID #1 TAB 05/05/22 [Rx Last Taken Unknown] gabapentin 100 mg capsule 100 mg PO TIDCM #90 caps 05/05/22 [Rx Last Taken Unknown] oxycodone 5 mg tablet 2.5 mg PO Q4H PRN PRN Pain Score 4-10 3 days #14 tabs 05/05/22 [Rx Last Taken Unknown] Allergy/AdvReac Type Severity Reaction Status Date / Time No Known Allergies Allergy Verified 04/19/22 20:19 Family History (Updated 04/22/22 @ 13:[address] Rita Patel DO) Mother Heart disease Diabetes Father Heart disease Brother Heart disease Surgical History (Updated 04/22/22 @ 13:[address] Rita Patel DO) History of open reduction and internal fixation (ORIF) procedure Social History (Updated 04/22/22 @ 13:[address] Rita Patel DO) household members: none and other details: she has children that live within a few mile of her tht can assist housing: house current occupational status: retired Smoking Status: Never smoker alcohol intake: never substance use type: does not use Vital Signs Vital Signs Vital Signs: 05/04/22 21:00 05/05/22 07:59 05/05/22 10:00 Temperature 97.8 F 98.0 F Temperature Source Oral Oral Pulse Rate 69 98 Pulse Strength Normal (2+) Respiratory Rate 18 16 Respiratory Effort Respiratory Depth Respiratory Pattern Blood Pressure 119/45 L 131/76 H Blood Pressure Mean 69 94 Blood Pressure Source Monitor Blood Pressure Position Semi-Fowlers Blood Pressure Location Right Arm Pulse Ox 99 96 Oxygen Delivery Method Room Air Room Air 05/05/22 10:00 Temperature Temperature Source Pulse Rate Pulse Strength Respiratory Rate Respiratory Effort Normal Non-Labored Respiratory Depth Normal Respiratory Pattern Normal Blood Pressure Blood Pressure Mean Blood Pressure Source Blood Pressure Position Blood Pressure Location Pulse Ox Oxygen Delivery Method Room Air Weight Weight: 143 lb 6.4 oz Body Mass Index (BMI) 26.9 Results Lab / Micro Data Result Diagrams: 05/03/22 12:20 05/03/22 12:20 Unit Exclusion This patient is an acute care inpatient being housed in the excluded unit because of capacity issues related to the disaster or emergency.: Yes
[2022-05-05 11:19] VITALS: BP 131/76; PULSE 98; RESP 16; TEMP 36.7; O2SAT 96
--- NOTE | 2022-05-05 11:40 | PCM.DC.SUM ---
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 Plan DC on 05/05/22. F/U with Dr. Howard post DC (2) Closed left hip fracture: Status: Acute Code(s): S72.002A - Fracture of unspecified part of neck of left femur, initial encounter for closed fracture Plan: Healing with no sign of infection (3) History of open reduction and internal fixation (ORIF) procedure: Status: Acute Code(s): Z98.890 - Other specified postprocedural states Plan: Follow-up with Dr. Kulwinder Howard post discharge. (4) Acute blood loss anemia: Status: Acute Code(s): D62 - Acute posthemorrhagic anemia Plan: recheck an HH on 05/03/22 and a [facility] (5) Skin tear: Status: Acute Plan: Healed. Mepilex applied at discharge to protect the wound for the next week against shear forces. (6) Sciatica: Status: Acute Code(s): M54.30 - Sciatica, unspecified side Plan: She is no longer c/o this and I think her pain now is musculoskeletal due to the recent hip surgery. She thinks she would like to continue Gabapentin at DC and then maybe when she has recovered from the ORIF/FX then she will try and stop it. (7) History of osteoporosis: Status: Acute Code(s): Z87.39 - Personal history of other diseases of the musculoskeletal system and connective tissue Plan: See the hospital course section of this document for recommendations regarding tx of osteoporosis. Plan DC home with [facility]. Follow-up with Dr. Gregg Celis for primary care. Follow-up with Dr. Kulwinder Howard for ongoing care of left hip fracture/cephalomedullary nail placement. Bone density study in the near future. Continue ASA 81 mg BID through 05/19/22 and then decrease to once a day. Medications at Discharge Home Medications lisinopril 10 mg tablet 10 mg PO DAILY bp 04/19/22 ascorbic acid (vitamin C) 500 mg tablet (Vitamin C) 500 mg PO DAILY Check with primary doctor 04/20/22 calcium 600 mg capsule 600 mg PO DAILY Check with primary doctor 04/20/22 cholecalciferol (vitamin D3) 50 mcg (2,000 unit) tablet (Vitamin D3) 50 mcg PO QWEEK Check with primary doctor 04/20/22 cyanocobalamin (vitamin B-12) 1,000 mcg tablet (Vitamin B-12) 1,000 mcg PO DAILY Check with primary doctor 04/20/22 fluticasone propionate 50 mcg/actuation nasal spray,suspension (Flonase Allergy Relief) 1 spray intranasal DAILY PRN allergies 04/20/22 folic acid 400 mcg tablet 400 mcg PO DAILY Check with primary doctor 04/20/22 lactobacillus combination no.4 3 billion cell capsule (Probiotic) 3 cell PO DAILY Check with primary doctor 04/20/22 magnesium 250 mg tablet 250 mg PO DAILY Check with primary doctor 04/20/22 omega-3 fatty acids 1,000 mg PO DAILY Check with primary doctor 04/20/22 omeprazole 20 mg capsule,delayed release 20 mg PO DAILY hiatal hernia 04/21/22 aspirin 81 mg tablet,delayed release (Enteric Coated Aspirin) 81 mg PO BID #1 TAB 05/05/22 gabapentin 100 mg capsule 100 mg PO TIDCM #90 caps 05/05/22 oxycodone 5 mg tablet 2.5 mg PO Q4H PRN PRN Pain Score 4-10 3 days #14 tabs 05/05/22 Hospital Course Operations - (ORIF Left hip on 04/20/2022 for cephalomedullary nail placement. ) Procedures None Summary of Care Provided Minutes Spent on Discharge: 35 Hospital Course: ?? ? MADELINE MOBLEY, is a 81-year-old F with a past medical history of hypertension and GERD who presented to the ED at [facility] on04/19/22 after a mechanical fall c/o Left hip pain.? X-ray in the emergency department showed a intertrochanteric fracture of the left femoral neck.? She was admitted to the hospital and consultation was obtained with Dr. Kulwinder Howard.? She was taken to surgery on 04/20/2022 and had an open reduction internal fixation with an intramedullary nail.? She had no significant post-op complications and PT/OT recommended inpt acute rehab prior to discharging home.? She was transferred to the acute rehab unit at [facility] on 04/21/22 for 3 hours of therapy daily to restore function/independence at or near her level prior to the fall/fracture.? Lab at admission to rehab showed a decreased hemoglobin at 10.1 due to acute blood loss anemia related to surgery.? The BMP was within normal limits.? Calcium was low at 8.2 however when corrected for hypoalbuminemia calcium was within normal limits.? Vitamin D level was 67.6 which is good.? Madeline has a hx of Left side Sciatica and had a lot of radicular pain once PT really got going.? She was started on Gabapentin 100 mg TID and the radicular pain improved.? She has had no adverse reactions to gabapentin.? Pain from the surgery was well controlled with Scheduled Tylenol and Oxycodone 2.5 mg usually 2-3 times a day.? When she came to us she had a skin tear on the R buttock and she was being treated by the wound care nurse.? during her stay the tear epithelialized and there was no opening in the skin at [place].? She was discharged with a Mepilex patch over the site of the previous skin tear to protect it from shear forces getting in and out of the car at [place].? She will leave this on until if falls off.? Madeline did very well in therapy and I suspect this has a low to do with how active she was prior to the fracture.? She lives by herself and was walking without an assistive device prior to the fall.? At the time of discharge she had walked up to 130 feet on various surfaces with a wheeled walker independently.? She was able to complete transfers from various heights independently.? She could do 6 sit to stands in 30 seconds using the armrests to push.? She was able to ascend/descend 3 steps at 4 inches with 1 handrail and a quad cane at contact-guard assist so that she could gain entry into her home.? At the time of discharge she was independent with grooming, upper body dressing, lower body dressing, toilet transfer and toileting.? She is supervision/set up for shower transfer.? Madeline was discharged home for rehab on 05/05/22.? I recommended she discuss obtaining a bone density study with Dr. Celis since she has not had 1 in at least 3 years (per the patient).? She has been diagnosed with osteoporosis in the past and took Fosamax for a number of years but, quit due to stomach upset and reflux.? She has hiatal hernia and is chronically on Prilosec which is known to cause bone loss. she is taking only Calcium and Vitamin D at the present time.? We discussed alternative pharmacologic treatment? for osteoporosis with Madeline and her dtr and specifically talked about Evista and Calcitonin.? If desired she can be referred to endocrinology, Dr. Bennie Kincaid, in [place] for tx of osteoporosis if the new bone density study is in fact consistent with osteoporosis.? Madeline was discharged home in stable condition.? Vital signs at the time of discharge were temp 98 ?F, pulse rate 69-98, blood pressure 131/76 and pulse ox 96% on room air.? Hemoglobin on 05/03/2022 was improving at 11.6.? BMP was remarkable for a sodium of 135 but was otherwise unremarkable.? BUN was 11 with a creatinine of 0.68.? Calcium was 9.1 (the calcium supplement was increased to 500 mg Twice a day during her stay in rehab to help with healing the fracture. Calcium at admission to rehab was 8.2 but, when corrected for hypoalbuminemia the calcium was 9.0.? She was instructed at [place] to continue wearing the compression stockings for at least 2-4 more weeks to help with swelling in the Left ankle.? She will follow up with Dr. Howard and Dr. Celis post [place].? Physical Exam Const alert, oriented x3, no apparent distress and average body habitus Constitutional Narrative: Sitting in the recliner at the bedside and she appears comfortable. General Appearance: cooperative, comfortable and well kempt; Negative for in distress HEENT normocephalic Eyes PERRL, EOMs intact bilaterally, conjunctivae normal, no scleral icterus and normal visual davies by confrontation Eyes Narrative: Eye are blue and there is no DC from the eyes or mattering of the eye lids. 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 Jugular Venous Distention: Negative for JVD Bruits: carotid bruit left GI normal to inspection, nondistended, normoactive bowel sounds, soft to palpation and non-tender GI Narrative: No guarding with palpation. Does not feel constipated. Extremity normal capillary refill, no calf tenderness and no pedal edema Extremity Narrative: She has swelling of the L ankle due to recent hip repair. YOEL hose are in place. No calf tenderness. Skin Skin Narrative: The incision is intact with no dehiscence. There is no erythema and no purulent discharge. The swelling and bruising are resolving. General Skin Exam: no breakdown Rashes: no rashes Neuro oriented x3, CN's II-XII intact bilaterally, moves all extremities, no focal motor deficits and no sensory deficits noted Psych mental status grossly normal, thought process normal, cooperative, affect normal, speech normal and activity/motor behavior normal Weight / BMI Weight Weight: 143 lb 6.4 oz Body Mass Index (BMI) 26.9 ABG / Lab / Microbiology Data Result Diagrams: 05/03/22 12:20 05/03/22 12:20 D/C Instructions Discharge Diet: - (Low salt) Weight Bearing Status: Full weight bearing Keep extremity elevated above heart level: Left Leg Additional Activity Instructions: Stay active. Get up at least every hour while awake and take a walk. This helps to prevent stiffness and makes it easier to get up from a chair and get going. In the long run you will have less pain and progress with therapy more quickly if you keep moving. Call your doctor if your incision/area has: Continuous Slow Oozing, Sudden Increased Bleeding, Increased Pain/ Swelling, Increased Redness and Foul Smelling Discharge Call your doctor if you observe: Fever of 101 or Higher, Numbness or Tingling, Shortness of breath, Dizziness, Fainting spells, Chest pain, Increased palpitations (irregular heartbeat), Calf discomfort and Uncontrolled pain Suture Line Care: Avoid Pulling/Pushing and Avoid Pinching/Bending Cleanse incision/area with: Soap & Water and - (If your clothing is irritating the incision you can apply a dressing to protect the incision. ) Pending Tests Upon Discharge: none Please Follow Up With: Kulwinder Howard MD Meaningful Use Info Meaningful Use Diagnoses (Choose all that apply): None applicable Discharge Plan Admission Admit Date/Time: 04/21/22 15:35 Primary Reason for Your Visit: Physical debility due to hip fracture. Attending Provider: Rita Patel Primary Care Provider: Gregg Celis Instructions Patient Instructions: Osteoporosis Exercise, Osteoporosis Bone Loss, Osteoporosis Med, Hip Fx Surg Dc, Caring for Your Incision Additional Instructions / Restrictions: 1. You did very well in therapy. I do not expect you to have problems returning home. No tub baths until Dr. Howard tells you it is OK. You may take a shower. No driving until Dr. Howard releases you to drive. Look at the incision every day for the next 2 weeks and if there is redness, increased pain or swelling, any discharge from the incision or bleeding from the incision call Dr. Howard. 2. The skin tear on the Left buttock has healed but, the skin will be fragile and can break open again if there is friction. We will put a new protective pad on the area at discharge and you can leave it on until if falls off. 3. Your blood count dropped with surgery due to blood loss and this is normal. Your bone marrow has responded appropriately and the blood count is already increased since you arrived on rehab. 4. Your BP is well controlled. 5. It has been over 2 years since your last bone density study. I think you should ask Dr. Celis for a requisition to have another done. You are very heathy and active and will more than likely live a lot longer. Osteoporosis if untreated can lead to painful fractures.......you can have vertebral fractures without even falling and these are painful and can be debilitating. There is a doctor in [facility], Dr. Bennie Kincaid, who treats patients with osteoporosis. I know you need to take Prilosec for a hiatal hernia and reflux but, you should know that this medication can cause bone loss. 6. It has been a pleasure having you on rehab. You have worked hard and you are always pleasant. We have all enjoyed getting to know you. If you ever need rehab again we would be happy to welcome you back. Hopefully you will not need us but, if you do we are here for you. 7. I have given you a prescription for Gabapentin. This was started to help with the sciatica pain and you have been taking it 3 times a day with no adverse side effects. 7. If you have any questions after leaving rehab please feel free to call me. OFFICE: [phone] CELL: [phone] I am sending a copy of the discharge summary to Dr. Celis so he will know what happened in the hospital and rehab. I will also send a copy to Dr. Howard. Discharge Orders/Prescriptions Prescriptions: New aspirin [Enteric Coated Aspirin] 81 mg tablet,delayed release (DR/EC) 81 mg PO BID Qty: 1 0RF Rx Instructions: Take this medication twice a day until 05/19 and then decrease to once daily. gabapentin 100 mg Capsule 100 mg PO TIDCM Qty: 90 0RF Continued lisinopril 10 mg tablet 10 mg PO DAILY Label Comments: TAKE 1 TABLET BY MOUTH ONCE DAILY calcium 600 mg Capsule 600 mg PO DAILY cyanocobalamin (vitamin B-12) [Vitamin B-12] 1,000 mcg Tablet 1,000 mcg PO DAILY folic acid 400 mcg Tablet 400 mcg PO DAILY ascorbic acid (vitamin C) [Vitamin C] 500 mg Tablet 500 mg PO DAILY magnesium 250 mg Tablet 250 mg PO DAILY fluticasone propionate [Flonase Allergy Relief] 50 mcg/actuation [place],Suspension 1 spray INTRANASAL DAILY PRN (Reason: allergies) omega-3 fatty acids Capsule 1,000 mg PO DAILY cholecalciferol (vitamin D3) [Vitamin D3] 50 mcg (2,000 unit) Tablet 50 mcg PO QWEEK Probiotic 3 billion cell Capsule 3 cell PO DAILY omeprazole 20 mg Capsule,Delayed Release(Dr/Ec) 20 mg PO DAILY oxycodone 5 mg Tablet 2.5 mg PO Q4H PRN PRN (Reason: Pain Score 4-10) 3 Days Qty: 14 0RF Discontinued Prilosec 20 mg DAILY aspirin 81 mg Tablet 81 mg PO DAILY sennosides-docusate sodium [Stool Softener-Stimulant Laxat] 8.6-50 mg tablet 2 tab PO BID Referrals / Follow Up: Kulwinder Howard MD [Med Staff - Active Staff] - 05/11/22 3:00 pm Gregg Celis MD [Primary Care Provider] - 05/09/22 2:20 pm Disposition Disposition (needs filled in before D/C Order can be placed): Home Health Service Charges/Coding Visit Charges Inpatient E&M: 32543 Disch Hosp
== END 2022-05-05 11:21 | disposition home health service (06) | DRG 560 ==
PROVIDERS: Admitting Provider Internal Medicine; PCP Internal Medicine; Visit Provider Internal Medicine
DX: S72.002D Fracture of unspecified part of neck of left femur, subsequent encounter for closed fracture with routine healing (principal); D62 Acute posthemorrhagic anemia; E78.00 Pure hypercholesterolemia, unspecified; K21.9 Gastro-esophageal reflux disease without esophagitis; I10 Essential (primary) hypertension; W19.XXXD Unspecified fall, subsequent encounter; S31.811A Laceration without foreign body of right buttock, initial encounter; Z79.82 Long term (current) use of aspirin; Z79.899 Other long term (current) drug therapy; X58.XXXA Exposure to other specified factors, initial encounter
CPT/HCPCS: 36415; 73502; 80048; 82040; 82306; 83735; 84100; 85014; 85018; 85025; 85610; 85730; 97110; 97112; 97116; 97162; 97166; 97530; 97535; 97802; A4216

== ENCOUNTER 2023-02-09 12:15 | Emergency (ER) | payer MEDICARE, OTHER, SELFPAY ==
[2023-02-09 12:16] VITALS: BP 170/60; PULSE 76; RESP 16; TEMP 36.2; O2SAT 99; BMI 28.1
--- NOTE | 2023-02-09 12:20 | RAD_ITS ---
STUDY: X-RAY LEFT FOOT, GREAT TOE REASON FOR EXAM: Female, 82 years old. Pain following a fall. TECHNIQUE: 3 view(s) of the toe were obtained. COMPARISON: None. FINDINGS: There is demineralization of the metatarsus. Normal metatarsophalangeal (M.T.P) joint. Normal interphalangeal joints. Normal phalanges and interphalangeal joints. Soft tissue swelling. RAD/Toe(s) Min 2 Views IMPRESSION: Soft tissue swelling. No fracture is seen. Electronically Signed: Bony Pate MD at 13:10 EDT ,
--- NOTE | 2023-02-09 12:39 | ED.VIS.FALL ---
HPI <SANDIE Strickland - Last Filed: 02/09/23 16:32> HPI - Fall History of Present Illness Chief Complaint: Fall Narrative Narrative: 82-year-old female was carrying a hanging plant basket when she tripped on her brick patio and landed on her right shoulder. She also injured her left great toe. There was no head injury or LOC. Family members assisted her to a standing position she was able to ambulate. She cannot move her right shoulder due to pain. She is right-hand dominant. [facility] <SANDIE Strickland - Last Filed: 02/09/23 16:32> [facility] Medical History (Updated 02/09/23 @ 15:20 by SANDIE Strickland) Closed left hip fracture GERD (gastroesophageal reflux disease) Hiatal hernia High cholesterol Hypertension Left carotid bruit Non-smoker Osteoporosis Post-menopausal Sciatica Home Medications lisinopril 10 mg tablet 10 mg PO DAILY bp 04/19/22 [History Last Taken 04/21/22] ascorbic acid (vitamin C) 500 mg tablet (Vitamin C) 500 mg PO DAILY Check with primary doctor 04/20/22 [History Last Taken Unknown] calcium 600 mg capsule 600 mg PO DAILY Check with primary doctor 04/20/22 [History Last Taken Unknown] cholecalciferol (vitamin D3) 50 mcg (2,000 unit) tablet (Vitamin D3) 50 mcg PO QWEEK Check with primary doctor 04/20/22 [History Last Taken Unknown] cyanocobalamin (vitamin B-12) 1,000 mcg tablet (Vitamin B-12) 1,000 mcg PO DAILY Check with primary doctor 04/20/22 [History Last Taken Unknown] fluticasone propionate 50 mcg/actuation nasal spray,suspension (Flonase Allergy Relief) 1 spray intranasal DAILY PRN allergies 04/20/22 [History Last Taken Unknown] folic acid 400 mcg tablet 400 mcg PO DAILY Check with primary doctor 04/20/22 [History Last Taken Unknown] lactobacillus combination no.4 3 billion cell capsule (Probiotic) 3 cell PO DAILY Check with primary doctor 04/20/22 [History Last Taken Unknown] magnesium 250 mg tablet 250 mg PO DAILY Check with primary doctor 04/20/22 [History Last Taken Unknown] omega-3 fatty acids 1,000 mg PO DAILY Check with primary doctor 04/20/22 [History Last Taken Unknown] omeprazole 20 mg capsule,delayed release 20 mg PO DAILY hiatal hernia 04/21/22 [History Last Taken 04/21/22] aspirin 81 mg tablet,delayed release (Enteric Coated Aspirin) 81 mg PO BID #1 TAB 05/05/22 [Rx Last Taken Unknown] gabapentin 100 mg capsule 100 mg PO TIDCM #90 caps 05/05/22 [Rx Last Taken Unknown] oxycodone 5 mg tablet 2.5 mg PO Q4H PRN PRN Pain Score 4-10 3 days #14 tabs 05/05/22 [Rx Last Taken Unknown] hydrocodone-acetaminophen 5-325mg 5mg-325mg 1 tab PO Q6H PRN PRN Pain 3 days #12 TABLETS 02/09/23 [Rx Last Taken Unknown] Allergy/AdvReac Type Severity Reaction Status Date / Time No Known Allergies Allergy Verified 04/19/22 20:19 Family History (Updated 04/22/22 @ 13:[address] Rita Patel DO) Mother Heart disease Diabetes Father Heart disease Brother Heart disease Surgical History (Updated 04/22/22 @ 13:[address] Rita Patel DO) History of open reduction and internal fixation (ORIF) procedure Social History (Updated 04/22/22 @ 13:[address] Rita Patel DO) household members: none and other details: she has children that live within a few mile of her tht can assist housing: house current occupational status: retired Smoking Status: Never smoker alcohol intake: never substance use type: does not use ROS <SANDIE Strickland - Last Filed: 02/09/23 16:32> ROS ED ROS Narrative Constitutional: Negative for fever, chills, malaise. CVS: Negative for chest pain. Respiratory: Negative for shortness of breath. GI: Negative for abdominal pain, nausea, vomiting. Skin: Negative for wound. Musc: Positive for right shoulder pain, swelling, trauma. EXAM <SANDIE Strickland - Last Filed: 02/09/23 16:32> Physical Exam Narrative Exam Narrative: CONST: Patient sitting in no acute distress. EYES: Normal inspection. HEAD: Cephalic, atraumatic NECK: Normal inspection. No midline spinal tenderness, no step off or crepitus. RESP: No respiratory distress, CTAB. CVS: Regular rate and rhythm, no murmur, no gallop. ABD: Soft and nontender, no guarding or rebound, nondistende. SKIN: Color normal, no rash, warm, dry, intact. EXTREMITIES: Patient keeping right arm abducted with no deformity, tender over the proximal humerus. No tenderness of the elbow or distal extremity, distal strength and sensation intact, 2+ radial pulses. Bilateral lower extremities: Slight swelling and tenderness over the great toe, otherwise nontender, 2+ DP pulses. NEURO: Oriented x4. PSYCH: Normal affect. Const Vital Signs: 02/09/23 12:16 02/09/23 16:15 Temperature 97.1 F L Temperature Source Temporal Pulse Rate 76 Respiratory Rate 16 14 Blood Pressure 170/60 H Blood Pressure Mean 96 Pulse Ox 99 Oxygen Delivery Method Room Air <Dr. Nghia Chappell DO - Last Filed: 02/09/23 20:17> Physical Exam Const Vital Signs: 02/09/23 12:16 02/09/23 16:15 Temperature 97.1 F L Temperature Source Temporal Pulse Rate 76 Respiratory Rate 16 14 Blood Pressure 170/60 H Blood Pressure Mean 96 Pulse Ox 99 Oxygen Delivery Method Room Air MDM <SANDIE Strickland - Last Filed: 02/09/23 16:32> [facility] Narrative Medical decision making narrative: History gathered from: Patient and family member at bedside Patient had a mechanical fall injuring her right shoulder and left great toe. No head injury. She has no external signs of head trauma. Normal heart and lung sounds. She is tender over the right proximal humerus with swelling and inability to range the shoulder. Distally neurovascularly intact. She also has mild swelling and tenderness over the left great toe. No subungual hematoma. Distal pulses intact. X-ray of the right shoulder was read as and anterior-inferior dislocation with comminuted fracture of the surgical neck but on my review the humeral head seems to be in the joint. I consulted orthopedics and Dr. Kulwinder Howard agreed but recommended getting an axillary view which confirms there is no humeral head dislocation. Patient was placed in sling and swath. Her left toe x-ray is negative. She does not use assistive walking devices and is able to ambulate so is comfortable going home. I prescribed [place] for pain and provided an orthopedic referral. Differential: Shoulder contusion, fracture, dislocation, rotator cuff tear Consults orthopedics Radiography Diagnostic Testing: Clinical Impression(s) from Imaging Studies Toe X-Ray 02/09/23 12:20 IMPRESSION: Soft tissue swelling. No fracture is seen. Electronically Signed: Bony Pate MD at 13:10 EDT , Shoulder X-Ray 02/09/23 12:45 IMPRESSION: Anterior inferior dislocation of the right shoulder joint with a comminuted fracture of the surgical neck of the proximal humerus with extension to the greater and lesser tuberosities. Electronically Signed: Bony Pate MD at 13:08 EDT , Shoulder X-Ray 02/09/23 14:41 IMPRESSION: Acute impacted fracture of the humeral head and neck with mild cortical avulsion of greater tuberosity. Electronically Signed: Galileo Rhodes MD at 16:20 EDT , ED attending interpretation of right shoulder film shows acute proximal humerus fracture with the shaft anterior to the humeral head. Does not appear to be a humeral head dislocation. <Dr. Nghia Chappell, DO - Last Filed: 02/09/23 20:17> [facility] Narrative Medical decision making narrative: History gathered from: Patient and family member at bedside Patient had a mechanical fall injuring her right shoulder and left great toe. No head injury. She has no external signs of head trauma. Normal heart and lung sounds. She is tender over the right proximal humerus with swelling and inability to range the shoulder. Distally neurovascularly intact. She also has mild swelling and tenderness over the left great toe. No subungual hematoma. Distal pulses intact. X-ray of the right shoulder was read as and anterior-inferior dislocation with comminuted fracture of the surgical neck but on my review the humeral head seems to be in the joint. I consulted orthopedics and Dr. Kulwinder Howard agreed but recommended getting an axillary view which confirms there is no humeral head dislocation. Patient was placed in sling and swath. Her left toe x-ray is negative. She does not use assistive walking devices and is able to ambulate so is comfortable going home. I prescribed [place] for pain and provided an orthopedic referral. Differential: Shoulder contusion, fracture, dislocation, rotator cuff tear Consults orthopedics This patient was seen with a PA/CORN MILLER Individually assessed they patient including history and physical. I have reviewed everything on the chart that is available and agree with the documentation provided by the PA/CORN MILLER including discussion about the assessment, treatment plan, discussion, and return precautions. Patient with mechanical fall left toe pain and right shoulder pain. I interpretation of the right shoulder x-ray is comminuted fracture of the surgical neck of the humeral head. Radiologist interprets this and states it is also dislocated. Discussed with Dr. Howard who placed an axillary view. This does not appear to be dislocated on my interpretation. Patient will be put in a sling and swath discharged home. Toe x-ray on my interpretation shows no acute fracture or subluxation. Patient provided [place] for pain. Radiography Diagnostic Testing: Clinical Impression(s) from Imaging Studies Toe X-Ray 02/09/23 12:20 IMPRESSION: Soft tissue swelling. No fracture is seen. Electronically Signed: Bony Pate MD at 13:10 EDT , Shoulder X-Ray 02/09/23 12:45 IMPRESSION: Anterior inferior dislocation of the right shoulder joint with a comminuted fracture of the surgical neck of the proximal humerus with extension to the greater and lesser tuberosities. Electronically Signed: Bony Pate MD at 13:08 EDT , Shoulder X-Ray 02/09/23 14:41 IMPRESSION: Acute impacted fracture of the humeral head and neck with mild cortical avulsion of greater tuberosity. Electronically Signed: Galileo Rhodes MD at 16:20 EDT , Discharge Plan Triage Chief Complaint: Fall Other Complaint: Upper Extremity Injury ED Midlevel Provider: Jordana Murphy ED Provider: Nghia Chappell Dx/Rx/DC Orders Clinical Impression: Contusion of great toe, left, Closed fracture of right proximal humerus Instructions: ED Fracture, Shoulder Prescriptions: New hydrocodone-acetaminophen 5-325 mg tablet 1 tab PO Q6H PRN PRN (Reason: Pain) 3 Days Qty: 12 0RF No Action lisinopril 10 mg tablet 10 mg PO DAILY Label Comments: TAKE 1 TABLET BY MOUTH ONCE DAILY calcium 600 mg Capsule 600 mg PO DAILY cyanocobalamin (vitamin B-12) [Vitamin B-12] 1,000 mcg Tablet 1,000 mcg PO DAILY folic acid 400 mcg Tablet 400 mcg PO DAILY ascorbic acid (vitamin C) [Vitamin C] 500 mg Tablet 500 mg PO DAILY magnesium 250 mg Tablet 250 mg PO DAILY fluticasone propionate [Flonase Allergy Relief] 50 mcg/actuation [place],Suspension 1 spray INTRANASAL DAILY PRN (Reason: allergies) omega-3 fatty acids Capsule 1,000 mg PO DAILY cholecalciferol (vitamin D3) [Vitamin D3] 50 mcg (2,000 unit) Tablet 50 mcg PO QWEEK Probiotic 3 billion cell Capsule 3 cell PO DAILY omeprazole 20 mg Capsule,Delayed Release(Dr/Ec) 20 mg PO DAILY aspirin [Enteric Coated Aspirin] 81 mg tablet,delayed release (DR/EC) 81 mg PO BID Qty: 1 0RF Rx Instructions: Take this medication twice a day until 05/19 and then decrease to once daily. gabapentin 100 mg Capsule 100 mg PO TIDCM Qty: 90 0RF oxycodone 5 mg Tablet 2.5 mg PO Q4H PRN PRN (Reason: Pain Score 4-10) 3 Days Qty: 14 0RF Primary Care Provider: Gregg Celis Referrals: Kulwinder Howard MD [Med Staff - Active Staff] - Gregg Celis MD [[facility]] - Activity Restrictions/Additional Instructions: You have a fracture in your shoulder. The part that is broken is the upper part of your humerus bone. Wear the sling and swath at all times other than taking off to change and bathe. Follow-up with the orthopedic doctor. Disposition Disposition: Home, Self Care Discharge Date/Time: 02/09/23 16:45
--- NOTE | 2023-02-09 12:45 | RAD_ITS ---
STUDY: X-RAY - RIGHT SHOULDER REASON FOR EXAM: Female, 82 years old. Shoulder pain following a fall. TECHNIQUE: 3 view(s) of the shoulder. COMPARISON: None. FINDINGS: Anterior inferior dislocation. Normal acromioclavicular joint. Normal acromion. Comminuted fracture of the surgical neck of the proximal humerus with extension into the greater and lesser tuberosities. The soft tissue structures are unremarkable. Mild increased markings at the right lung base suggestive of atelectasis. RAD/Shoulder min 2 Views IMPRESSION: Anterior inferior dislocation of the right shoulder joint with a comminuted fracture of the surgical neck of the proximal humerus with extension to the greater and lesser tuberosities. Electronically Signed: Bony Pate MD at 13:08 EDT ,
[2023-02-09] MEDS: Ondansetron ODT 4 MG Tablet PO (12:53)
[2023-02-09] MEDS: oxyCODONE 5 MG Tablet PO (12:53)
--- NOTE | 2023-02-09 14:41 | RAD_ITS ---
STUDY: X-RAY - RIGHT SHOULDER REASON FOR EXAM: Female, 82 years old. pain TECHNIQUE: Axillary view(s) of the shoulder. COMPARISON: None. FINDINGS: Normal glenohumeral articulation. Normal acromioclavicular joint. Normal acromion. Acute impacted fractured humeral head and neck with overlapping of fracture fragments.. Mild cortical avulsion of the greater tuberosity. The soft tissue structures are unremarkable. Normal visualized pulmonary apex. RAD/Shoulder One View IMPRESSION: Acute impacted fracture of the humeral head and neck with mild cortical avulsion of greater tuberosity. Electronically Signed: Galileo Rhodes MD at 16:20 EDT ,
[2023-02-09 16:15] VITALS: RESP 14
== END 2023-02-09 16:45 | disposition home or self-care (01) ==
PROVIDERS: Emergency Provider Student in an Organized Health Care Education/Training Program; PCP Internal Medicine; Visit Provider Student in an Organized Health Care Education/Training Program
DX: S42.201A Unspecified fracture of upper end of right humerus, initial encounter for closed fracture (principal); I10 Essential (primary) hypertension; E78.00 Pure hypercholesterolemia, unspecified; S90.112A Contusion of left great toe without damage to nail, initial encounter; W01.198A Fall on same level from slipping, tripping and stumbling with subsequent striking against other object, initial encounter; K21.9 Gastro-esophageal reflux disease without esophagitis; Z79.82 Long term (current) use of aspirin
CPT/HCPCS: A4566; 73020; 73030; 73660; 99283